=== PATIENT | female | born 1960 | race Caucasian/White ===

== ENCOUNTER 2016-05-04 16:24 | Emergency (ER) | payer OTHER ==
[~2016-05-04] VITALS: Ht 154.9 cm; Wt 83.4 kg
[~2016-05-04 16:24] MED LIST: ALBUAER2 INH; ATOR10TA88 PO; BSP/10 PO; FLUT1INH7 INH; GABA-113 PO; HYDR50CA2 PO; NALT50TA9 PO; PRAZ1CAP10 PO; QUET400T PO
[2016-05-04 16:40] VITALS: TEMP 37.1; Ht 154.9 cm; Wt 83.4 kg
[2016-05-04] MEDS ORDERED: DOXE50CA3 PO (17:02)
[2016-05-04] MEDS ORDERED: OXYCODONE HCL IR 5 MG TAB (IMMEDIATE RELEASE) PO STA (17:08)
[2016-05-04] MEDS ORDERED: VNTHFA/IN INH (17:22)
[2016-05-04] MEDS ORDERED: GLCSR10 PO (17:24)
--- NOTE | 2016-05-04 17:42 | DIAGNOSTIC IMAGING REPORT ---
RIGHT WRIST W/NAVICULAR MIN 3 VIEWS CLINICAL HISTORY: Right wrist pain. COMPARISON: None. DISCUSSION: No acute fractures or dislocations are visualized. There is a nonspecific 1 cm lytic lesion within the distal radial diaphysis. IMPRESSION: 1. No acute fractures or dislocations identified 2. Nonspecific 1 cm lytic lesion within the distal radial diaphysis. Correlation with a bone scan might be considered in follow-up to help determine whether this lesion is metabolically active Electronically signed by: Rahul Gabriel M.D. 05/04/2016 5:40 PM Dictated Date/Time: 05/04/2016 5:38 PM
--- NOTE | 2016-05-04 17:48 | EMERGENCY ROOM VISIT NOTE ---
ED Visit Note First contact with patient: 16:58 I have seen and examined this patient with Preeti Nguyen and generally agree with the treatment plan as discussed. Problem List Medical Problems: (1) Back spasm Status: Chronic (2) Depression Status: Chronic (3) Diabetes Status: Chronic (4) Heroin addiction Status: Resolved (5) Pseudogout of knee Status: Resolved Surgical Problems: (1) H/O: hysterectomy Status: Chronic (2) Previous section Status: Chronic Current/Historical Medications Scheduled Aspirin (Aspirin Chewable), 81 MG PO DAILY Atorvastatin (Lipitor), 10 MG PO DAILY Bupropion (Wellbutrin Sr), 150 MG PO BID Buspirone HCl (Buspirone HCl), 15 MG PO BID Doxepin (Sinequan), 50 MG PO DAILY Dulaglutide (Trulicity), 0.75 MG INJ WK Gabapentin (Neurontin), 300 MG PO TID Glipizide (Glipizide ER), 10 MG PO QAM Metformin Hcl (Glucophage), 1,000 MG PO BID Prazosin Hcl (Prazosin), 2 MG PO HS Quetiapine Fumarate (Seroquel), 400 MG PO HS Scheduled PRN Albuterol Hfa (Ventolin Hfa), 2 PUFFS INH QID PRN for SOB/Wheezing Allergies Coded Allergies: Canagliflozin (Verified Allergy, Severe, NAUSEA, VAGIN AL IRRITATION, SOB , 09/21/15) Levofloxacin (Verified Allergy, Intermediate, HIVES, 07/16/15) Vital Signs Date Time Temp Pulse Resp B/P Pulse Ox O2 Delivery O2 Flow Rate FiO2 05/04/16 16:40 37.1 88 18 134/73 94 Room Air Departure Information Referrals Chelsey Leavitt M.D. (MEDICAL) (PCP) Patient Instructions My [facility]
[2016-05-04] MEDS ORDERED: OXYC-57 PO (18:13)
[2016-05-04] MEDS ORDERED: PRED50TA PO (18:13)
--- NOTE | 2016-05-04 18:14 | EMERGENCY ROOM VISIT NOTE ---
ED Visit Note First contact with patient: 16:58 CHIEF COMPLAINT: Wrist injury HISTORY OF PRESENT ILLNESS: This 48-year-old female patient presents to the emergency department ambulatory complaining of pain in the right wrist. The patient reports she has had a gradual onset of pain in her right wrist and thumb beginning yesterday and worsening today. She denies any specific injury to the wrist. She is able to move it, but states there is increased pain when she is moving her thumb or index finger. She also has increased pain when trying to push herself up from a sitting position using her wrist. She recently overall discomfort a 10/10. She does have a history of gout but has never had gout in her wrist. No numbness or tingling. No previous issues with this wrist. She has not taken anything for pain at home. REVIEW OF SYSTEMS: A 6 system review of systems was performed with positives and pertinent negatives in the HPI. ALLERGIES: See EMR MEDICATIONS: See med list PMH: Gout, diabetes SOCIAL HISTORY: The patient lives locally with family. PHYSICAL EXAM: Vital Signs: Reviewed Nurse's notes, vital signs stable. GENERAL : This is a 56-year-old female, in no acute distress, but appears to be in pain , well-developed, well-nourished. NEURO: Alert and oriented to person place and time. Normal sensation to light and sharp touch. MUSCULOSKELETAL: There is no deformity of the right wrist. There is no erythema, edema or warmth. There is tenderness over the right wrist just proximal to the thumb. Range of motion is full. There is no tenderness of the hand. Label Cutter strength 5/5. Radial pulse 2+. SKIN: Normal and intact. The hand is warm and well perfused with capillary refill less than 2 seconds. RADIOGRAPHIC FINDINGS: RIGHT WRIST W/NAVICULAR MIN 3 VIEWS DISCUSSION: No acute fractures or dislocations are visualized. There is a nonspecific 1 cm lytic lesion within the distal radial diaphysis. IMPRESSION: 1. No acute fractures or dislocations identified 2. Nonspecific 1 cm lytic lesion within the distal radial diaphysis. Correlation with a bone scan might be considered in follow-up to help determine whether this lesion is metabolically active EMERGENCY DEPARTMENT COURSE: I examined the patient. An X-ray of the right wrist was reviewed by myself and radiology and showed a lytic lesion within the distal radius. This is not at the site of the patient's pain, but she was informed of this and should follow-up with orthopedics for further evaluation and testing. The patient's symptoms today are most consistent with a tendinitis. She does have a history of gout and I feel this is less likely, but there could be acalculous component to her pain as well. She was put in a thumb spica splint. The patient will be given a short course of prednisone. She does have diabetes, but is very well-controlled and checks her blood sugars closely. She was informed that this will most likely cause elevation of her blood sugar. She was given a short course of pain medication. She was instructed to follow-up with orthopedics regarding this. She will return for worsening symptoms. She verbalized understanding of my assessment and treatment plan and was discharged home in good condition. The patient was independently evaluated by Dr. Hu, ED attending physician, who agreed with my assessment and treatment plan. The patient was discharged home in good condition. DIAGNOSIS: Right wrist pain Problem List Medical Problems: (1) Back spasm Status: Chronic (2) Depression Status: Chronic (3) Diabetes Status: Chronic (4) Heroin addiction Status: Resolved (5) Pseudogout of knee Status: Resolved Surgical Problems: (1) H/O: hysterectomy Status: Chronic (2) Previous section Status: Chronic Current/Historical Medications Scheduled Aspirin (Aspirin Chewable), 81 MG PO DAILY Atorvastatin (Lipitor), 10 MG PO DAILY Bupropion (Wellbutrin Sr), 150 MG PO BID Buspirone HCl (Buspirone HCl), 15 MG PO BID Doxepin (Sinequan), 50 MG PO DAILY Dulaglutide (Trulicity), 0.75 MG INJ WK Gabapentin (Neurontin), 300 MG PO TID Glipizide (Glipizide ER), 10 MG PO QAM Metformin Hcl (Glucophage), 1,000 MG PO BID Prazosin Hcl (Prazosin), 2 MG PO HS Prednisone (Prednisone), 50 MG PO DAILY Quetiapine Fumarate (Seroquel), 400 MG PO HS Scheduled PRN Albuterol Hfa (Ventolin Hfa), 2 PUFFS INH QID PRN for SOB/Wheezing Oxycodone/Acetaminophen 5MG/325MG (Percocet 5MG/325MG), 1-2 TABS PO Q6H PRN for Pain Allergies Coded Allergies: Canagliflozin (Verified Allergy, Severe, NAUSEA, VAGIN AL IRRITATION, SOB , 09/21/15) Levofloxacin (Verified Allergy, Intermediate, HIVES, 07/16/15) Vital Signs Date Time Temp Pulse Resp B/P Pulse Ox O2 Delivery O2 Flow Rate FiO2 05/04/16 18:23 86 16 131/73 97 05/04/16 16:40 37.1 88 18 134/73 94 Room Air Medications Administered Medications (Trade) Dose Ordered Sig/Isak Route Start Time Stop Time Status Last Admin Dose Admin Oxycodone HCl (Roxicodone Immediate Rel Tab) 5 mg NOW STAT PO 05/04/16 17:08 05/04/16 17:10 DC 05/04/16 17:53 5 MG Departure Information Impression Primary Impression: Right wrist pain Dispostion Home / Self-Care Condition GOOD Prescriptions Oxycodone/Acetaminophen 5MG/325MG (PERCOCET 5MG/325MG) Tab 1-2 TABS PO Q6H Y for Pain, #15 TAB For Initial Treatment Prov: Preeti Nguyen PA-C 05/04/16 Prednisone (Prednisone) 50 Mg Tab 50 MG PO DAILY for 4 Days, #4 TAB Prov: Preeti Nguyen PA-C 05/04/16 Referrals Chelsey Leavitt M.D. (MEDICAL) (PCP) Patient Instructions My [facility] Additional Instructions You have been treated in the Emergency Department for Wrist Pain. You have received pain medicine in the emergency department which impairs your ability to operate a vehicle. It is illegal for you to drive after receiving these medicines. You have been prescribed Percocet to be used for pain control. This is a narcotic medication. You cannot drive or consume alcohol while on this medicine. This medicine should only be used for pain that cannot be controlled with [id number] pain medicines. Prednisone as prescribed. Check your blood sugars closely for the next few days , as steroids can increase your blood sugars. For pain control, you can use the following [id number] medicines (if >12 yo): - Regular strength (325mg/tab) Tylenol (acetaminophen) 2 tabs every 4-6 hours as needed. Do not exceed 12 tablets in a 24 hour period. Avoid taking more than 4 grams (4000 mg) of Tylenol per day. This includes any other sources of acetaminophen you may take on a regular basis. - Regular strength (200 mg/tab) Advil (ibuprofen) 1-2 tabs every 4-6 hours as needed. Do not exceed a dose of 3200 mg per day. If this is a recent injury (<24 hrs), ice can be applied to the area of pain for the first 3 days to help decrease pain and inflammation. Wear the brace as needed for pain. Follow-up with orthopedics within 1-2 weeks regarding your wrist pain. Return to the Emergency Department if your current symptoms worsen despite treatment course outlined above, or if you develop any of the following symptoms : Redness/swelling, intractable pain despite aforementioned treatment course or new onset of numbness or tingling of the fingers.
[2016-05-04 18:23] VITALS: BP 131/73; PULSE 86; O2SAT 97
[2016-05-04] MEDS ORDERED: ASPCH81X PO (19:40)
[2016-05-04] MEDS ORDERED: BUPR-79 PO (19:40)
[2016-09-04] MEDS ORDERED: BSP15 PO (17:02)
[2016-09-04] MEDS ORDERED: DULA1INJ INJ (17:02)
[2016-09-04] MEDS ORDERED: METF-384 PO (17:23)
[2016-09-04] MEDS ORDERED: ERGO1CAP41 PO (22:26)
[2016-09-04] MEDS ORDERED: SRQ400 PO (22:26)
== END 2016-05-04 18:24 | disposition home or self-care (01) ==
LOC: C.EDB 16:26 → C.EDD 18:24
DX: M25.531 Pain in right wrist (principal); E11.9 Type 2 diabetes mellitus without complications; F32.9 Major depressive disorder, single episode, unspecified; Z79.899 Other long term (current) drug therapy; Z79.84 Long term (current) use of oral hypoglycemic drugs; Z79.82 Long term (current) use of aspirin; Z87.39 Personal history of other diseases of the musculoskeletal system and connective tissue

== ENCOUNTER 2016-09-04 21:48 | Emergency (ER) | payer OTHER ==
[~2016-09-04] VITALS: Ht 152.4 cm; Wt 76.6 kg
[~2016-09-04 21:48] MED LIST changes: -ALBUAER2 INH; +ASPCH81X PO; +ATOR10TA82 PO; -ATOR10TA88 PO; -BSP/10 PO; +BSP15 PO; +BUPR-79 PO; +DOXE50CA3 PO; +DULA1INJ INJ; -FLUT1INH7 INH; +GLCSR10 PO; -HYDR50CA2 PO; +METF-384 PO; -NALT50TA9 PO; +OXYC-57 PO; +VNTHFA/IN INH
[2016-09-04 21:52] VITALS: BP 129/73; PULSE 109; TEMP 37; O2SAT 95; Ht 152.4 cm; Wt 76.6 kg
[2016-09-04] MEDS ORDERED: XYLOCAINE 1%/SOD BICARB 20 ML VIAL INFIL ONE (22:00)
[2016-09-04] MEDS ORDERED: ASPI81TA28 PO (22:26)
[2016-09-04] MEDS ORDERED: LPT10 PO (22:26)
[2016-09-04] MEDS ORDERED: SNQ/50 PO (22:26)
[2016-09-04] MEDS ORDERED: ERGO500011 PO (22:26)
[2016-09-04] MEDS ORDERED: GABA1CAP4 PO (22:26)
[2016-09-04] MEDS ORDERED: QUET1TAB20 PO (22:26)
[2016-09-04] MEDS ORDERED: RANI300T PO (22:26)
[2016-09-04] MEDS ORDERED: GLIM4TAB2 PO (22:26)
[2016-09-04] MEDS ORDERED: WLLSR150 PO (22:26)
[2016-09-04] MEDS ORDERED: PRZ1 PO (22:26)
--- NOTE | 2016-09-05 02:12 | EMERGENCY ROOM VISIT NOTE ---
History First contact with patient: 21:56 Chief Complaint: SKIN PROBLEM Stated Complaint: SOMETHING STUCK UNDER SKIN IN R ARM History of Present Illness The patient is a 56 year old female who presents to the Emergency Room with complaints of possible foreign body and right forearm. Patient was gardening and then bhakti noticed there is possibly something in her forearm. She does not room remember getting stuck by anything. Tetanus is current. Patient denies fever, redness, drainage. No numbness or tingling. No weakness. Review of Systems See HPI for pertinent positives & negatives. A total of 6 systems reviewed and were otherwise negative. Past Medical/Surgical History Medical Problems: (1) Back spasm (2) Depression (3) Diabetes (4) Heroin addiction (5) Pseudogout of knee Surgical Problems: (1) H/O: hysterectomy (2) Previous section Family History Diabetes mellitus Hypertension Lung disease Social History Smoking Status: Current Every Day Smoker Alcohol Use: none Drug Use: other Marital Status: in relationship Housing Status: lives with significant other Occupation Status: unemployed Current/Historical Medications Scheduled Aspirin (Aspirin Ec), 81 MG PO DAILY Atorvastatin (Atorvastatin Calcium), 10 MG PO DAILY Bupropion HCl (Bupropion HCl Sr), 150 MG PO BID Buspirone HCl (Buspirone HCl), 15 MG PO BID Doxepin Hcl (Sinequan), 50 MG PO DAILY Dulaglutide (Trulicity), 0.75 MG INJ WK Ergocalciferol (Vitamin D 91728 Unit), 50,000 INTER.UNIT PO WK Gabapentin (Gabapentin), 600 MG PO TID Glimepiride (Glimepiride), 4 MG PO QAM Metformin Hcl (Glucophage), 1,000 MG PO BID Prazosin HCl (Prazosin HCl), 2 MG PO HS Quetiapine Fumarate (Quetiapine Fumarate), 400 MG PO HS Ranitidine Hcl (Zantac), 300 MG PO QAM Allergies Coded Allergies: Canagliflozin (Verified Allergy, Severe, NAUSEA, VAGIN AL IRRITATION, SOB , 09/21/15) Levofloxacin (Verified Allergy, Intermediate, HIVES, 07/16/15) Physical Exam Vital Signs Date Time Temp Pulse Resp B/P (MAP) Pulse Ox O2 Delivery O2 Flow Rate FiO2 09/04/16 21:52 37.0 109 20 129/73 95 Room Air Pain Rating (0-10): 0 Physical Exam VITALS: Vitals are noted on the nurse's note and reviewed by myself. Vital signs stable. GENERAL: Pleasant female, in no acute distress, nondiaphoretic, well-developed well-nourished. SKIN: Capillary reflex less than 2 seconds. Right forearm with 1 mm wound was concerning for possible foreign body by palpation. No signs of cellulitis or lymphangitis. Right forearm nontender to palpation. Radial pulse +2 equal present bilaterally. MUSCULOSKELETAL: No gross musculoskeletal defects. NEURO: Patient was alert and oriented to person place and time. Normal sensation to light and sharp touch. No focal neurological deficits. Medical Decision & Procedures Procedure Foreign body removal Indication: Foreign body. Location: Right forearm Verbal consent was obtained after the risks and benefits were explained, including but not limited to bleeding, scarring, infection, pain, and bone/joint /nerve damage. At this time, the risks of the procedure are less than the risks of NOT performing the procedure. A time out was taken and the correct patient and site identified. The skin was prepped with betadine and a sterile field set. The wound was anesthetized with 2 ml of 1% lidocaine without epinephrine. The area was entered with a number 11 blade and a 1 cm piece of wood was removed and patient requested to have this to take, and show her . Copious irrigation was performed using NSS. The wound was explored for any other foreign bodies and none found. Debridement was not performed. a sterile dressing applied. Detailed wound care instructions and signs and symptoms of worsening infection reviewed with the patient. No complications and the patient tolerated the procedure well. ED Course Prior records reviewed and summarized as above. Triage Nursing notes reviewed. The patient's history was concerning for possible foreign body. Differential diagnosis: Etiologies such as foreign body, cellulitis, abscess, MRSA infection, dermatitis, drug eruption, as well as others were entertained.. Physical examination: The physical examination was consistent with foreign body with removal ER treatment provided: Foreign body removal as above On reassessment the patient felt better. Diagnostics interpreted by me: Deferred This appears to be isolated Foreign body with removal. Patient tolerated procedure well. She is counseled on wound care. She is advised to return to the ER immediately for redness, drainage, fevers, worsening signs or symptoms or as needed. Patient stated her tetanus is current. By the evaluation outlined above emergent etiologies such as abscess, as well as others were deemed relatively unlikely. The pt informed about the findings as listed above. All questions were answered and pleased with the treatment. Return instructions were outlined and the patient was discharged in stable condition. Referral: The patient was referred back to primary care physician for follow-up in 2 to 3 days for a recheck of the current condition. Medical Decision As above Impression Primary Impression: Foreign body of upper arm, right, superficial Departure Information Dispostion Home / Self-Care Condition GOOD Forms WORK / SCHOOL INSTRUCTIONS, HOME CARE DOCUMENTATION FORM, IMPORTANT VISIT INFORMATION Patient Instructions [facility], ED Abrasion Additional Instructions Antibiotic ointment and bandage to the areas until healed. Follow up with family doctor or return for any signs of infection (increasing redness, swelling , drainage, or fever). Keep covered when in sun until fully healed then SPF 50 or higher until scar healed. Problem Qualifiers Primary Impression: Foreign body of upper arm, right, superficial Encounter type: initial encounter Qualified Codes: S40.851A - Superficial foreign body of right upper arm, initial encounter
== END 2016-09-04 22:14 | disposition home or self-care (01) ==
LOC: C.EDB 21:49 → C.EDD 22:14
DX: S40.851A Superficial foreign body of right upper arm, initial encounter (principal); W45.8XXA Other foreign body or object entering through skin, initial encounter; Y93.H2 Activity, gardening and landscaping; Y99.8 Other external cause status; E11.9 Type 2 diabetes mellitus without complications; F32.9 Major depressive disorder, single episode, unspecified; F11.21 Opioid dependence, in remission; F17.200 Nicotine dependence, unspecified, uncomplicated; Z90.710 Acquired absence of both cervix and uterus; Z98.891 History of uterine scar from previous surgery; Z83.3 Family history of diabetes mellitus; Z82.49 Family history of ischemic heart disease and other diseases of the circulatory system; Z79.82 Long term (current) use of aspirin; Z79.84 Long term (current) use of oral hypoglycemic drugs; Z79.899 Other long term (current) drug therapy

== ENCOUNTER 2016-10-07 23:13 | Observation (INO) | payer OTHER ==
[~2016-10-07] VITALS: Ht 152.4 cm; Wt 78.8 kg
[~2016-10-07 23:13] MED LIST changes: -ASPCH81X PO; +ASPI81TA28 PO; -ATOR10TA82 PO; -BUPR-79 PO; -DOXE50CA3 PO; +ERGO1CAP41 PO; -GABA-113 PO; +GABA1CAP4 PO; -GLCSR10 PO; +GLIM4TAB2 PO; +LPT10 PO; -OXYC-57 PO; -PRAZ1CAP10 PO; +PRZ1 PO; -QUET400T PO; +RANI300T PO; +SNQ/50 PO; +SRQ400 PO; -VNTHFA/IN INH; +WLLSR150 PO
[2016-10-07] MEDS ORDERED: SODIUM CHLORIDE 0.9% 1000ML 1,000 ML IV STA (23:31)
[2016-10-07] MEDS ORDERED: ONDANSETRON INJ 2 MG/ML 2 ML VIAL IV STA (23:31)
[2016-10-07] MEDS ORDERED: MoRPHine SULFATE 4 MG/ML 1 ML CARP\\VIAL IV STA (23:31)
--- NOTE | 2016-10-07 23:44 | EMERGENCY ROOM VISIT NOTE ---
History Report prepared by Alejandro: Lonny Alva Under the Supervision of: Dr. Penny Houser, D.O. First contact with patient: 23:22 Chief Complaint: CARDIAC ASSESSMENT Stated Complaint: PAIN IN CHEST LEADING UP UNDER LT ARM History of Present Illness The patient is a 56 year old female who presents to the Emergency Room with complaints of constant left-sided chest pain beginning prior to arrival. The patient states that her pain started in her left breast, and then it radiated through her left side of the chest and into her left arm pit. She notes that it did not radiate to her back or arm. She reports that she thought it was indigestion, so she took TUMs, but it did not help. The patient states that she is nauseous and has diarrhea. She denies vomiting, diaphoresis, dizziness, lightheadedness, right-sided chest pain, melena, fever, chills, cough, and edema to the legs. The patient notes that she has had previous symptoms before and was diagnosed with pancreatitis. She denies a history of GERD or stomach ulcers. The patient reports that she just started Vitamin D and Trulicity. She notes that she drinks one cup of coffee in the morning, and denies alcohol and soda consumption. The patient states that she has not started eating new foods and does not eat an acidic diet. She states that she is a diabetic, and her sugars have been normal because her new specialist told her she needed to lose weight. The patient notes that she has a history of COPD and takes medication daily. She reports that she still smokes and has an inhaler to use when needed. Source of History: patient Onset: prior to arrival Position: chest (left) Timing: constant Associated Symptoms: + nausea, + diarrhea, No fevers, No chills, No diaphoresis, No cough, No chest pain (right-sided), No vomiting, No back pain, No melena Note: Associated symptoms: left arm pit pain Denies: arm pain, dizziness, lightheadedness, and edema to the legs. Review of Systems See HPI for pertinent positives & negatives. A total of 10 systems reviewed and were otherwise negative. Past Medical & Surgical Medical Problems: (1) Back spasm (2) Depression (3) Diabetes (4) Heroin addiction (5) Precordial chest pain (6) Pseudogout of knee Surgical Problems: (1) H/O: hysterectomy (2) Previous section Family History Diabetes mellitus Hypertension Lung disease Social History Smoking Status: Current Every Day Smoker Alcohol Use: none Drug Use: other Marital Status: in relationship Housing Status: lives with significant other Occupation Status: unemployed Current/Historical Medications Scheduled Aspirin (Aspirin Ec), 81 MG PO DAILY Atorvastatin (Atorvastatin Calcium), 10 MG PO DAILY Bupropion HCl (Bupropion HCl Sr), 150 MG PO BID Buspirone HCl (Buspirone HCl), 15 MG PO BID Doxepin Hcl (Sinequan), 50 MG PO DAILY Dulaglutide (Trulicity), 0.75 MG INJ WK Ergocalciferol (Vitamin D 49638 Unit), 50,000 INTER.UNIT PO WK Gabapentin (Gabapentin), 600 MG PO TID Glimepiride (Glimepiride), 4 MG PO QAM Metformin Hcl (Glucophage), 1,000 MG PO BID Prazosin HCl (Prazosin HCl), 2 MG PO HS Quetiapine Fumarate (Quetiapine Fumarate), 400 MG PO HS Ranitidine Hcl (Zantac), 300 MG PO QAM Allergies Coded Allergies: Canagliflozin (Verified Allergy, Severe, NAUSEA, VAGIN AL IRRITATION, SOB , 09/21/15) Levofloxacin (Verified Allergy, Intermediate, HIVES, 07/16/15) Physical Exam Vital Signs Date Time Temp Pulse Resp B/P (MAP) Pulse Ox O2 Delivery O2 Flow Rate FiO2 10/08/16 02:35 84 22 124/81 96 Room Air 10/08/16 01:49 99 78 Room Air 10/08/16 01:10 72 20 131/79 100 Room Air 10/08/16 00:20 82 20 143/90 96 Room Air 10/07/16 23:49 99 Room Air 10/07/16 23:38 78 10/07/16 23:17 36.6 85 19 150/75 99 Room Air Physical Exam GENERAL: alert, well appearing, well nourished, mild distress, non-toxic EYE EXAM: normal conjunctiva, PERRL and EOM's grossly intact OROPHARYNX: no exudate, no erythema, lips, buccal mucosa, and tongue normal and mucous membranes are dry. Edentulous NECK: supple, no nuchal rigidity, no adenopathy, non-tender LUNGS: Clear to auscultation. Normal chest wall mechanics. No reproducible chest tenderness. HEART: no murmurs, S1 normal and S2 normal ABDOMEN: abdomen soft, epigastric tenderness, normo-active bowel sounds, no masses, no rebound or guarding. BACK: Back is symmetrical on inspection and there is no deformity, no midline tenderness, no CVA tenderness. SKIN: no rashes and no bruising UPPER EXTREMITIES: upper extremities are grossly normal. LOWER EXTREMITIES: No pitting edema. NEURO EXAM: Normal sensorium, cranial nerves II-XII grossly intact, normal speech, no gross weakness of arms, no gross weakness of legs. Medical Decision & Procedures ER Provider Diagnostic Interpretation: XRAY: A chest view study was reviewed, no cardiomegaly, no effusion, no wide mediastinum, mildly increased interstitial markings bilaterally was seen. Laboratory Results Test 10/07/16 23:40 Immature Granulocyte % (Auto) 0.3 % White Blood Count 14.80 K/uL (4.8-10.8) Red Blood Count 4.63 M/uL (4.2-5.4) Hemoglobin 14.1 g/dL (12.0-16.0) Hematocrit 41.6 % (37-47) Mean Corpuscular Volume 89.8 fL (80-100) Mean Corpuscular Hemoglobin 30.5 pg (25-34) Mean Corpuscular Hemoglobin Concent 33.9 g/dl (32-36) Platelet Count 286 K/uL (130-400) Mean Platelet Volume 10.7 fL (7.4-10.4) Neutrophils (%) (Auto) 56.5 % Lymphocytes (%) (Auto) 33.2 % Monocytes (%) (Auto) 7.4 % Eosinophils (%) (Auto) 2.2 % Basophils (%) (Auto) 0.4 % Neutrophils # (Auto) 8.38 K/uL (1.4-6.5) Lymphocytes # (Auto) 4.91 K/uL (1.2-3.4) Monocytes # (Auto) 1.09 K/uL (0.11-0.59) Eosinophils # (Auto) 0.32 K/uL (0-0.5) Basophils # (Auto) 0.06 K/uL (0-0.2) Immature Granulocyte # (Auto) 0.04 K/uL (0.00-0.02) D-Dimer 200 ug/L FEU (0-500) Magnesium Level 1.8 mg/dl (1.8-2.4) Total Bilirubin 0.1 mg/dl (0.2-1) Aspartate Amino Transf (AST/SGOT) 10 U/L (15-37) Alanine Aminotransferase (ALT/SGPT) 26 U/L (12-78) Alkaline Phosphatase 87 U/L (45-117) Total Protein 7.0 gm/dl (6.4-8.2) Albumin 3.7 gm/dl (3.4-5.0) Globulin 3.3 gm/dl (2.5-4.0) Albumin/Globulin Ratio 1.1 (0.9-2) Lipase 257 U/L (73-393) Laboratory results per my review. Medications Administered Medications (Trade) Dose Ordered Sig/Isak Route Start Time Stop Time Status Last Admin Dose Admin Ondansetron HCl (Zofran Inj) 4 mg NOW STAT IV 10/07/16 23:31 10/07/16 23:34 DC 10/07/16 23:47 4 MG Morphine Sulfate (MoRPHine SULFATE INJ) 4 mg NOW STAT IV 10/07/16 23:31 10/07/16 23:34 DC 10/07/16 23:48 4 MG Sodium Chloride 1,000 ml @ 999 mls/hr Q1H1M STAT IV 10/07/16 23:31 10/08/16 00:31 DC 10/07/16 23:47 999 MLS/HR Al Hydroxide/Mg Hydroxide (Maalox Susp) 30 ml NOW STAT PO 10/08/16 00:25 10/08/16 00:26 DC 10/08/16 00:39 30 ML Ceftriaxone Sodium (Rocephin Inj) 1 gm NOW STAT IV 10/08/16 00:25 10/08/16 00:26 DC 10/08/16 00:39 1 GM Azithromycin (Zithromax Tab) 500 mg NOW ONCE PO 10/08/16 00:30 10/08/16 00:31 DC 10/08/16 00:39 500 MG Albuterol/ Ipratropium (Duoneb) 3 ml NOW STAT INH 10/08/16 00:57 10/08/16 00:58 DC 10/08/16 01:04 3 ML Ketorolac Tromethamine (Toradol Inj) 30 mg NOW STAT IV 10/08/16 00:57 10/08/16 00:58 DC 10/08/16 01:04 30 MG Sodium Chloride 1,000 ml @ 999 mls/hr Q1H1M STAT IV 10/08/16 00:58 10/08/16 01:58 DC 10/08/16 01:06 999 MLS/HR Dicyclomine HCl (Bentyl Tab) 20 mg NOW STAT PO 10/08/16 01:28 10/08/16 01:29 DC 10/08/16 01:39 20 MG Tramadol HCl (Ultram Tab) 50 mg NOW STAT PO 10/08/16 01:28 10/08/16 01:29 DC 10/08/16 01:39 50 MG ECG Indication: chest pain Rate (beats per minute): 78 Rhythm: sinus rhythm Findings: no acute ischemic change, other (Normal axis and interval, low voltage throughout) ED Course 2331: Ordered Sodium Chloride 1000 ml @ 999 mls/hr IV, Morphine Sulfate 4 mg IV , Zofran Inj 4 mg IV 2325: The patient was evaluated in room B02. A complete history and physical exam was performed. 0025: Ordered Rocephin Inj 1 gm IV, Maalox Susp 30 ml PO 0030: Ordered Zithromax Tab 500 mg PO 0056: I reevaluated the patient and updated her of her current exam findings. She states that she is still having pain, but it has improved. 0057: Ordered Toradol Inj 30 mg IV, Duoneb 3 ml INH 0128: Ordered Ultram Tab 50 mg PO, Bentyl Tab 20 mg PO 0146: Ambulatory Pulsox showed the patient's O2 Sat drop from 97% to 78% and increased worker breathing. 0147: Paged Dr. Price, [facility] Hospitalist. I never talked to him, but he is aware of the patient. He will evaluate her for further treatment. Medical Decision Differential diagnoses includes but is not limited to acute coronary syndrome, myocardial infarction, pericarditis, pulmonary embolus, aortic dissection, pneumonia, pneumothorax, musculoskeletal, shingles, esophageal. Medication Reconciliation: I attest that I have personally reviewed the patient' s current medication list. Blood pressure screening: Patient was found to have a slightly elevated blood pressure due to circumstances. I do not believe that the patient requires hypertension monitoring. Patient with persistent episodes of left-sided chest pain despite treatment. However felt initially may be amenable for outpatient treatment of COPD exacerbation/pneumonia. However upon ambulatory trial patient dropped her oxygen level. This prompted the decision to admit the patient. Doubt bacteremia/sepsis, doubt PE, doubt additional vascular etiology or cardiac etiology for patient's symptoms. Patient with continued tobacco abuse which likely predisposed her to a respiratory infection. Patient was made aware of all results was agreeable with plan. Consults Time Called: 0147 Consulting Physician: Dr. Price, [facility] Hospitalist Paged Dr. Price, [facility] Hospitalist. I never talked to him, but he is aware of the patient. He will evaluate her for further treatment. Impression Primary Impression: Pneumonia Additional Impressions: Left sided chest pain Tobacco abuse Hypoxia Scribe Attestation The scribe's documentation has been prepared under my direction and personally reviewed by me in its entirety. I confirm that the note above accurately reflects all work, treatment, procedures, and medical decision making performed by me. Departure Information Dispostion Being Evaluated By Hospitalist Referrals Geneva Loving M.D. (PCP) Patient Instructions My [facility] Problem Qualifiers Primary Impression: Pneumonia Pneumonia type: due to unspecified organism Laterality: left Lung location : lower lobe of lung Qualified Codes: J18.1 - Lobar pneumonia, unspecified organism
[2016-10-08 00:01] LABS: BASO % 0.4 %; BASO ABS # 0.06 K/uL (0-0.2); COMPLETE YES; EOS % 2.2 %; HEMATOCRIT 41.6 % (37-47); IG% 0.3 %; LYMPH % 33.2 %; LYMPH ABS # 4.91 K/uL (1.2-3.4); MEAN CELL VOLUME 89.8 fL (80-100); MEAN CORPUSCULAR HEMOGLOBIN 30.5 pg (25-34); MEAN CORPUSCULAR HGB CONC 33.9 g/dl (32-36); MEAN PLATELET VOLUME 10.7 fL (7.4-10.4); MONO % 7.4 %; NEUT % 56.5 %; PLATELET COUNT 286 K/uL (130-400); RED BLOOD COUNT 4.63 M/uL (4.2-5.4)
[2016-10-08] MEDS ORDERED: GLIM4TAB2 PO (00:14)
[2016-10-08 00:19] LABS: ALT/SGPT 26 U/L (12-78); BLOOD UREA NITROGEN 12 mg/dl (7-18); CALCIUM 9.6 mg/dl (8.5-10.1); CARBON DIOXIDE 23 mmol/L (21-32); CHLORIDE 111 mmol/L (98-107); CREATININE 0.85 mg/dl (0.60-1.20); GLUCOSE 92 mg/dl (70-99); MAGNESIUM 1.8 mg/dl (1.8-2.4); POTASSIUM 3.9 mmol/L (3.5-5.1); SODIUM 143 mmol/L (136-145)
[2016-10-08 00:24] LABS: ALB/GLOB RATIO 1.1 (0.9-2); ALKALINE PHOSPHATASE 87 U/L (45-117); AST/SGOT 10 U/L (15-37)
[2016-10-08] MEDS ORDERED: CEFTRIAXONE SOD INJ 1 GM ADDVIAL IV STA (00:25)
[2016-10-08] MEDS ORDERED: ALUMINUM/MAGNESIUM SUSP 30 ML UDC PO STA (00:25)
[2016-10-08] MEDS ORDERED: AZITHROMYCIN 250 MG TAB PO ONE (00:30)
[2016-10-08] MEDS ORDERED: ALBUT/IPRATROP 3MG/0.5MG NEB 3 ML VIAL INH STA (00:57)
[2016-10-08] MEDS ORDERED: KETOROLAC TROMETHAMINE 30 MG/ML VIAL IV STA (00:57)
[2016-10-08] MEDS ORDERED: SODIUM CHLORIDE 0.9% 1000ML 1,000 ML IV STA (00:58)
[2016-10-08] MEDS ORDERED: TRAMADOL HCL 50 MG TAB PO STA (01:28)
[2016-10-08] MEDS ORDERED: DICYCLOMINE HCL 20 MG TAB PO STA (01:28)
[2016-10-08] MEDS ORDERED: DICYCLOMINE HCL 10 MG CAP ONE (01:34)
[2016-10-08] MEDS ORDERED: POLYETHYLENE (MIRALAX) 17 GM PACK PO PRN (03:45)
[2016-10-08] MEDS ORDERED: NITROGLYCERIN 0.4 MG SL PER TAB CHARGE SL PRN (03:45)
[2016-10-08] MEDS ORDERED: ACETAMINOPHEN 325 MG TAB PO PRN (03:45)
[2016-10-08] MEDS ORDERED: ALUMINUM/MAGNESIUM/SIMETH (MAALOX MAX) 30 ML UDC PO PRN (03:45)
[2016-10-08] MEDS ORDERED: ONDANSETRON INJ 2 MG/ML 2 ML VIAL IV PRN (03:45)
[2016-10-08] MEDS ORDERED: DEXTROSE 50% 50 ML SYR IV PRN (04:15)
[2016-10-08] MEDS ORDERED: GLUCOSE 40% GEL 15 GM TUBE PO PRN (04:15)
[2016-10-08] MEDS ORDERED: GLUCAGON FOR INJ 1 MG VIAL SQ PRN (04:15)
[2016-10-08] MEDS ORDERED: GLUCOSE 10 TABS/TUBE PO PRN (04:15)
--- NOTE | 2016-10-08 04:19 | History and Physical ---
History & Physical Date & Time of Service: Oct 08, 2016 at 04:19 Chief Complaint: Pain In Chest Leading Up Under Lt Arm Primary Care Physician: Geneva Loving M.D. History of Present Illness Source: patient 56-year-old female with past medical history of depression, diabetes, pseudogout , heroin addiction presented to the ER with complaints of left-sided chest pain that started at around 2 PM. She stated that the pain radiated towards her left arm and later settled in her epigastric area. She tried using Tums which did not seem to help her pain. Complaints of nausea, chills and sweats but denies any coughing, vomiting, abdominal pain. She stated that she has a history of pancreatitis and was wondering if her epigastric pain was secondary to pancreatitis. She denied any history of alcohol consumption She is a current smoker and smokes about half pack a day Past Medical/Surgical History Medical Problems: (1) Back spasm Status: Chronic (2) Depression Status: Chronic (3) Diabetes Status: Chronic (4) Heroin addiction Status: Resolved (5) Pseudogout of knee Status: Resolved Surgical Problems: (1) H/O: hysterectomy Status: Chronic (2) Previous section Status: Chronic Family History Diabetes mellitus Hypertension Lung disease Social History Smoking Status: Current Every Day Smoker Drug Use: other Marital Status: in relationship Housing status: lives with significant other Occupational Status: unemployed Allergies Coded Allergies: Canagliflozin (Verified Allergy, Severe, NAUSEA, VAGIN AL IRRITATION, SOB , 09/21/15) Levofloxacin (Verified Allergy, Intermediate, HIVES, 07/16/15) Home Medications Scheduled Aspirin (Aspirin Ec), 81 MG PO DAILY Atorvastatin (Atorvastatin Calcium), 10 MG PO DAILY Bupropion HCl (Bupropion HCl Sr), 150 MG PO BID Buspirone HCl (Buspirone HCl), 15 MG PO BID Doxepin Hcl (Sinequan), 50 MG PO DAILY Dulaglutide (Trulicity), 0.75 MG INJ WK Ergocalciferol (Vitamin D 50095 Unit), 50,000 INTER.UNIT PO WK Gabapentin (Gabapentin), 600 MG PO TID Glimepiride (Glimepiride), 4 MG PO QAM Metformin Hcl (Glucophage), 1,000 MG PO BID Prazosin HCl (Prazosin HCl), 2 MG PO HS Quetiapine Fumarate (Quetiapine Fumarate), 400 MG PO HS Ranitidine Hcl (Zantac), 300 MG PO QAM Review of Systems Constitutional: + chills, + sweats, No fever Eyes: No worsening of vision Respiratory: No cough, No shortness of breath Cardiovascular: + chest pain Abdomen: + pain (epigastric), + nausea, No vomiting, No diarrhea Musculoskeletal: No joint pain Genitourinary - Female: No dysuria, No urinary frequency, No urinary urgency Neurologic: No memory loss Psychiatric: No depression symptoms Endocrine: No fatigue Physical Exam Vital Signs Date Time Temp Pulse Resp B/P (MAP) Pulse Ox O2 Delivery O2 Flow Rate FiO2 10/08/16 04:12 77 20 139/84 94 10/08/16 02:35 84 22 124/81 96 Room Air 10/08/16 01:49 99 78 Room Air 10/08/16 01:10 72 20 131/79 100 Room Air 10/08/16 00:20 82 20 143/90 96 Room Air 10/07/16 23:49 99 Room Air 10/07/16 23:38 78 10/07/16 23:17 36.6 85 19 150/75 99 Room Air General Appearance: WD/WN, no apparent distress Eyes: normal inspection ENT: normal ENT inspection, hearing grossly normal Neck: supple Respiratory/Chest: chest non-tender, lungs clear, normal breath sounds, no respiratory distress, no accessory muscle use Cardiovascular: regular rate, rhythm Abdomen/GI: normal bowel sounds, non tender, soft Back: normal inspection Extremities/Musculoskelatal: normal inspection, no calf tenderness Neurologic/Psych: alert, normal mood/affect, oriented x 3 Diagnostics Laboratory Results Results Past 24 Hours Test 10/07/16 23:40 Range/Units White Blood Count 14.80 4.8-10.8 K/uL Red Blood Count 4.63 4.2-5.4 M/uL Hemoglobin 14.1 12.0-16.0 g/dL Hematocrit 41.6 37-47 % Mean Corpuscular Volume 89.8 80-100 fL Mean Corpuscular Hemoglobin 30.5 25-34 pg Mean Corpuscular Hemoglobin Concent 33.9 32-36 g/dl Platelet Count 286 130-400 K/uL Mean Platelet Volume 10.7 7.4-10.4 fL Neutrophils (%) (Auto) 56.5 % Lymphocytes (%) (Auto) 33.2 % Monocytes (%) (Auto) 7.4 % Eosinophils (%) (Auto) 2.2 % Basophils (%) (Auto) 0.4 % Neutrophils # (Auto) 8.38 1.4-6.5 K/uL Lymphocytes # (Auto) 4.91 1.2-3.4 K/uL Monocytes # (Auto) 1.09 0.11-0.59 K/uL Eosinophils # (Auto) 0.32 0-0.5 K/uL Basophils # (Auto) 0.06 0-0.2 K/uL RDW Standard Deviation 43.1 36.4-46.3 fL RDW Coefficient of Variation 13.1 11.5-14.5 % Immature Granulocyte % (Auto) 0.3 % Immature Granulocyte # (Auto) 0.04 0.00-0.02 K/uL D-Dimer 200 0-500 ug/L FEU Sodium Level 143 136-145 mmol/L Potassium Level 3.9 3.5-5.1 mmol/L Chloride Level 111 98-107 mmol/L Carbon Dioxide Level 23 21-32 mmol/L Anion Gap 9.0 3-11 mmol/L Blood Urea Nitrogen 12 7-18 mg/dl Creatinine 0.85 0.60-1.20 mg/dl Est Creatinine Clear Calc Drug Dose 66.9 ml/min Estimated GFR () 87.5 Estimated GFR (Non- 75.5 BUN/Creatinine Ratio 14.0 10-20 Random Glucose 92 70-99 mg/dl Calcium Level 9.6 8.5-10.1 mg/dl Magnesium Level 1.8 1.8-2.4 mg/dl Total Bilirubin 0.1 0.2-1 mg/dl Aspartate Amino Transf (AST/SGOT) 10 15-37 U/L Alanine Aminotransferase (ALT/SGPT) 26 12-78 U/L Alkaline Phosphatase 87 45-117 U/L Troponin I < 0.015 0-0.045 ng/ml Total Protein 7.0 6.4-8.2 gm/dl Albumin 3.7 3.4-5.0 gm/dl Globulin 3.3 2.5-4.0 gm/dl Albumin/Globulin Ratio 1.1 0.9-2 Lipase 257 73-393 U/L Diagnostic Radiology CHEST ONE VIEW PORTABLE CLINICAL HISTORY: chest pain dyspnea COMPARISON STUDY: 09/22/2015 FINDINGS: Mild chronic interstitial change throughout both hemithoraces. No evidence for superimposed infiltrate. Diaphragms smooth. IMPRESSION: Chronic interstitial change. No acute process. Electronically signed by: Jerson Seaman M.D. 10/08/2016 6:45 AM Dictated Date/Time: 10/08/2016 6:44 AM Impression Assessment and Plan 56-year-old female with past medical history of depression, diabetes, pseudogout , heroin addiction presented to the ER with complaints of left-sided chest pain that started at around 2 PM. She stated that the pain radiated towards her left arm and later settled in her epigastric area Precordial chest pain: - Initial troponin negative - CXR: IMPRESSION: Chronic interstitial change. No acute process. - Trend troponins every 8 hours - Echo ordered - Continue statin and aspirin COPD: - Continue nebs as needed History of smoking: - NicoDerm patch - Smoking cessation counseling Diabetes - Insulin sliding scale Depression/anxiety: -Continue Seroquel, Wellbutrin, BuSpar Dispo: admitted to tele Attending Addendum: I physically seen and examined this patient, have supervised the medical residents activities, and agree with the H&P as noted above with the following exceptions: NONE The patient is awake, well-developed and adequately nourished, alert and oriented 3, normocephalic and atraumatic, lying in bed and in no acute distress. HEENT--PERRL, EOMI, mucous membranes and oropharynx dry. Neck--supple, no JVD or bruits, thyroid normal, trachea midline, no adenopathy. Heart--normal S1 and S2, no extra beats, no murmurs, rubs or gallops. Lungs--clear bilaterally with good air movement, no respiratory distress, no accessory muscle use. Abdomen--normal bowel sounds and soft, nontender and nondistended, no hernias or masses, no organomegaly. Extremities--no cyanosis, clubbing or edema. There are good distal pulses b/l. Dermatologic--normal skin turgor, normal color, warm and dry, no abnormal lymph nodes, no rash. Neurologic--cranial nerves II through XII grossly intact, motor and sensory examination normal. Rheumatologic--normal range of motion, nontender, muscles and joints. Psychiatric--normal affect. Assessment and Plan: 1. Left sided chest pain with radiation to left arm--the patient will be admitted to the telemetry unit for serial cardiac enzymes, cardiac rhythm monitoring and a 2-D echocardiogram with Dopplers. Continue aspirin 81 mg by mouth every morning and statin. Duonebs every 4 hours while awake and every 2 hours when necessary. Continue usual dosing of Seroquel, Wellbutrin and BuSpar. Level of Care Med/Surg Resuscitation Status FULL RESUSCITATION VTE Prophylaxis VTE Risk Assessment Done? Y/N: Yes Risk Level: Moderate Given or contraindicated: SCD's Resident Tracking Resident Involvement: Resident Care Provided Care Provided: Adult Hospital Medicine
[2016-10-08] MEDS ORDERED: IV FLUIDS COMPLETED PRN (05:00)
[2016-10-08 05:12] VITALS: BP 135/90; PULSE 75; TEMP 36.6; O2SAT 95; Ht 152.4 cm; Wt 78.8 kg
[2016-10-08] MEDS: SODIUM CHLORIDE 0.9% 1000ML 1,000 ML IV SCH ×2 (05:43→14:32)
[2016-10-08 05:54] LABS: HEMATOCRIT 39.3 % (37-47); MEAN CELL VOLUME 89.1 fL (80-100); MEAN CORPUSCULAR HEMOGLOBIN 29.5 pg (25-34); MEAN CORPUSCULAR HGB CONC 33.1 g/dl (32-36); MEAN PLATELET VOLUME 10.3 fL (7.4-10.4); PLATELET COUNT 236 K/uL (130-400); RED BLOOD COUNT 4.41 M/uL (4.2-5.4); WHITE BLOOD COUNT 12.82 K/uL (4.8-10.8)
[2016-10-08 06:28] LABS: CALCIUM 8.5 mg/dl (8.5-10.1); CREATININE 0.78 mg/dl (0.60-1.20); POTASSIUM 3.8 mmol/L (3.5-5.1)
--- NOTE | 2016-10-08 06:46 | DIAGNOSTIC IMAGING REPORT ---
CHEST ONE VIEW PORTABLE CLINICAL HISTORY: chest pain dyspnea COMPARISON STUDY: 09/22/2015 FINDINGS: Mild chronic interstitial change throughout both hemithoraces. No evidence for superimposed infiltrate. Diaphragms smooth. IMPRESSION: Chronic interstitial change. No acute process. Electronically signed by: Jerson Seaman M.D. 10/08/2016 6:45 AM Dictated Date/Time: 10/08/2016 6:44 AM
[2016-10-08 08:06] VITALS: BP 109/68; PULSE 81; TEMP 36.8; O2SAT 98
[2016-10-08] MEDS: INSULIN ASPART 100 UNITS/ML 3 ML PEN SC SCH ×2 (08:06→12:31)
[2016-10-08] MEDS: GABAPENTIN 600 MG TAB PO SCH ×2 (08:09→14:32)
[2016-10-08] MEDS ORDERED: ALBUT/IPRATROP 3MG/0.5MG NEB 3 ML VIAL INH PRN (08:15)
[2016-10-08] MEDS ORDERED: NURSING VERBAL MED ORDER ONE (08:15)
[2016-10-08] MEDS ORDERED: DOXEPIN HCL 50 MG CAP PO SCH ×2 (09:00→21:00)
[2016-10-08] MEDS ORDERED: ATORVASTATIN 10 MG TAB PO SCH (09:00)
[2016-10-08] MEDS ORDERED: ASPIRIN 81 MG ECTAB PO SCH (09:00)
[2016-10-08] MEDS ORDERED: RANITIDINE HCL 150 MG TAB PO SCH (09:00)
[2016-10-08] MEDS ORDERED: BuPROPion SR 150 MG TABCR PO SCH (09:00)
[2016-10-08] MEDS ORDERED: BusPIRone 15 MG TAB PO SCH (09:00)
[2016-10-08] MEDS ORDERED: NICOTINE 14 MG/24 HR TDSY TD SCH (09:00)
[2016-10-08 11:21] VITALS: BP 135/70; PULSE 75; TEMP 36.7; O2SAT 95
--- NOTE | 2016-10-08 14:51 | Discharge Instructions ---
Discharge Instructions Date of Service Oct 08, 2016. Admission Reason for Admission: Precordial Chest Pain Discharge Discharge Diagnosis / Problem: non cardiac chest pain Discharge Goals Goal(s): Diagnostic testing, Therapeutic intervention Activity Recommendations Activity Limitations: resume your previous activity . Instructions / Follow-Up Instructions / Follow-Up Please stop smoking Current Hospital Diet Patient's current hospital diet: Diabetes Type 2 Diet Discharge Diet Recommended Diet: Regular Diet Procedures Procedures Performed: cardiac stress test negative for ischemia Pending Studies Studies pending at discharge: no Laboratory Results Hemoglobin A1c Test 07/30/16 10:33 Range/Units Estimated Average Glucose 214 mg/dl Hemoglobin A1c 9.1 H 4.5-5.6 % Lipid Panel Test 07/30/16 10:33 Range/Units Triglycerides Level 181 H 0-150 mg/dl Cholesterol Level 143 0-200 mg/dl HDL Cholesterol 41 mg/dl Cholesterol/HDL Ratio 3.5 LDL Cholesterol, Calculated 66 mg/dl Medical Emergencies . Who to Call and When: Medical Emergencies: If at any time you feel your situation is an emergency, please call 911 immediately. . Non-Emergent Contact Non-Emergency issues call your: Primary Care Provider Call Non-Emergent contact if: temperature is above 101, your pain is unusual for you . . "Provider Documentation" section prepared by Madi Rios. . VTE Core Measure Inpt VTE Proph given/why not?: SCD's
[2016-10-08 15:02] VITALS: BP 135/70; PULSE 75; TEMP 36.7; O2SAT 95
--- NOTE | 2016-10-08 15:29 | DOBUTAMINE ECHO ---
*NOTICE TO RECEIVING LIBERTARIAN AGENCY This information is strictly Confidential and protected under [place] law. [place] law prohibits you from making any further disclosure of this information unless further disclosure is expressly permitted by the written consent of the person to whom it pertains or is authorized by law. A general authorization for the release of medical or other information is not sufficient for this purpose. Hospital accepts no responsibility if the information is made available to any other person, INCLUDING THE PATIENT. Interpretation Summary * Name: VENKATESH DELCID Study Date: 10/08/2016 01:27 PM BP: 138/77 mmHg * Patient Location: [facility]\S\N282\S\1 HR: 62 * : 1960 (M/d/yyyy) Gender: Female Height: 60 in * Age: 56 yrs Ethnicity: [place] Weight: 173 lb * Ordering Physician: Madi Rios * Referring Physician: Self, Referred * Performed By: Bettina Gallardo RCS * * Reason For Study: PRECORDIAL CHEST PAIN * BSA: 1.8 m2 * -- Conclusions -- * 1. Negative exercise stress echo for ischemia at 95% MPHR. * 2. Negative exercise ECG for ischemia. * 3. Normal functional capacity. Exercised 6:19, achieving 7.4 METS. No exercise induced chest pain. Low risk Ovalle treadmill score. * 4. Normal resting LV size and function. LVEF 55-60%. No regional wall motion abnormalities. Normal RV size and function. No significant valvular pathology. * 5. Compared with prior study on 08/07/2015: Exercise capacity has increased. Procedure Details * ECHOEX, CPT #69298 * ECHO COLOR FLOW, CPT #[id number] * ECHO DOPPLER, CPT #91322 Left Ventricular Findings with Stress * This was essentially a normal study. Left Ventricle * The left ventricle is grossly normal size. * There is borderline concentric left ventricular hypertrophy. * Ejection Fraction = 55-60%. * No regional wall motion abnormalities noted. Right Ventricle * The right ventricle is grossly normal size. * The right ventricular systolic function is normal as assessed by tricuspid annular plane systolic excursion (TAPSE) (normal >1.5 cm). Atria * The left atrial size is normal. * Right atrial size is normal. * There is no evidence of atrial septal defect, but resolution does not allow assessment for a patent foramen ovale. Mitral Valve * The mitral valve is grossly normal. * Mitral stenosis is absent. * Significant mitral regurgitation is absent. Tricuspid Valve * There is no tricuspid stenosis. * There is trace tricuspid regurgitation. * Right ventricular systolic pressure is normal. Aortic Valve * The aortic valve opens well. * The aortic valve is trileaflet. * No hemodynamically significant valvular aortic stenosis. * There is no significant aortic regurgitation. Pulmonic Valve * The pulmonary valve is inadequately visualized, but the Doppler data is adequate for interpretation. * There is no significant pulmonary regurgitation. Great Vessels * The aortic root and proximal ascending aorta are normal sized. Pericardium * There is no pericardial effusion. Stress Parameters * Normal baseline electrocardiogram. * Stress ECG: No ST changes. No arrhythmias. * No arrhythmia were noted with stress. * The stress portion of this study was personally supervised by the undersigned interpreting physician. * Rest heart rate was '62' BPM. * Rest blood pressure was '138/77' * Maximum heart rate achieved was 155 bpm. * Maximum heart rate was 95 % of maximum age-predicted heart rate. * Maximum blood pressure was '211/69' * Total exercise time was '06:19' * Maximum exercise MET level achieved was '7.40' METS * Maximum treadmill speed was '3.40' miles per hour. * Maximum treadmill elevation was '14.00'% grade. Left Ventricular Findings with Stress * The study was technically good with many images being of high quality. MMode 2D Measurements and Calculations IVSd 1.1 cm IVSs 1.5 cm LVIDd 4.5 cm LVIDs 4.0 cm LVPWd 1.0 cm LVPWs 1.2 cm IVS/LVPW 1.1 FS 12.3 % EDV(Teich) 94.1 ml ESV(Teich) 69.0 ml EF(Teich) 26.7 % EDV(cubed) 93.2 ml ESV(cubed) 62.8 ml EF(cubed) 32.6 % % IVS thick 43.3 % % LVPW thick 20.6 % LV mass(C)d 163.1 grams LV mass(C)dI 92.9 grams/m\S\2 LV mass(C)s 200.7 grams LV mass(C)sI 114.4 grams/m\S\2 SV(Teich) 25.1 ml SI(Teich) 14.3 ml/m\S\2 SV(cubed) 30.4 ml SI(cubed) 17.3 ml/m\S\2 Ao root diam 2.8 cm Ao root area 6.2 cm\S\2 LA dimension 3.3 cm LA/Ao 1.2 LVOT diam 1.9 cm LVOT area 2.8 cm\S\2 LVAd ap4 25.3 cm\S\2 LVLd ap4 7.4 cm EDV(MOD-sp4) 69.2 ml EDV(sp4-el) 73.4 ml LVAs ap4 17.5 cm\S\2 LVLs ap4 6.5 cm ESV(MOD-sp4) 39.0 ml ESV(sp4-el) 40.2 ml EF(MOD-sp4) 43.6 % EF(sp4-el) 45.2 % LVAd ap2 31.3 cm\S\2 LVLd ap2 7.9 cm EDV(MOD-sp2) 98.9 ml EDV(sp2-el) 104.6 ml LVAs ap2 21.7 cm\S\2 LVLs ap2 6.9 cm ESV(MOD-sp2) 56.3 ml ESV(sp2-el) 58.2 ml EF(MOD-sp2) 43.1 % EF(sp2-el) 44.4 % LVLd %diff 7.0 % EDV(MOD-bp) 86.0 ml LVLs %diff 5.9 % ESV(MOD-bp) 48.6 ml EF(MOD-bp) 43.4 % SV(MOD-sp4) 30.2 ml SI(MOD-sp4) 17.2 ml/m\S\2 SV(MOD-sp2) 42.6 ml SI(MOD-sp2) 24.3 ml/m\S\2 SV(MOD-bp) 37.3 ml SI(MOD-bp) 21.3 ml/m\S\2 SV(sp4-el) 33.2 ml SI(sp4-el) 18.9 ml/m\S\2 SV(sp2-el) 46.4 ml SI(sp2-el) 26.4 ml/m\S\2 Doppler Measurements and Calculations MV E max izabella 87.9 cm/sec MV A max izabella 90.6 cm/sec MV E/A 0.97 MV P1/2t max izabella 97.7 cm/sec MV P1/2t 46.9 msec MVA(P1/2t) 4.7 cm\S\2 MV dec slope 610.2 cm/sec\S\2 MV dec time 0.20 sec Ao V2 max 134.8 cm/sec Ao max PG 7.3 mmHg Ao max PG (full) 1.3 mmHg KIRSTEN(V,A) 2.6 cm\S\2 KIRSTEN(V,D) 2.6 cm\S\2 LV V1 max PG 5.9 mmHg LV V1 max 121.9 cm/sec MR max izabella 476.4 cm/sec MR max PG 90.8 mmHg PA V2 max 80.0 cm/sec PA max PG 2.6 mmHg TR max izabella 266.7 cm/sec
[2016-10-08] MEDS ORDERED: QUETIAPINE FUMARATE 200 MG TAB PO SCH (21:00)
[2016-10-08] MEDS ORDERED: PRAZOSIN HCL 1 MG CAP PO SCH (21:00)
--- NOTE | 2016-10-09 08:59 | Discharge Summary ---
Discharge Summary Date of Service Oct 08, 2016. Discharge Summary Admission Date: Oct 08, 2016 at 03:42 Discharge Date: Oct 08, 2016 Discharge Disposition: Home Principal Diagnosis: non cardiac chest pain Procedures: stress echo negative Medication Reconciliation Continued Medications: Aspirin (Aspirin Ec) 81 Mg Tab 81 MG PO DAILY Atorvastatin (Atorvastatin Calcium) 10 Mg Tab 10 MG PO DAILY Bupropion HCl (Bupropion HCl Sr) 150 Mg Tabcr 150 MG PO BID Buspirone HCl (Buspirone HCl) 15 Mg Tab 15 MG PO BID Doxepin Hcl (Sinequan) 50 Mg Cap 50 MG PO DAILY Dulaglutide (Trulicity) 0.75 Mg/0.5 Ml Inj 0.75 MG INJ WK EVERY WEDNESDAY Ergocalciferol (Vitamin D 76895 Unit) 50,000 Unit Cap 63748 INTER.UNIT PO WK EVERY WEDNESDAY Gabapentin (Gabapentin) 300 Mg Cap 600 MG PO TID Glimepiride (Glimepiride) 4 Mg Tab 4 MG PO QAM Metformin Hcl (Glucophage) 1,000 Mg Tab 1000 MG PO BID, TAB Prazosin HCl (Prazosin HCl) 1 Mg Cap 2 MG PO HS Quetiapine Fumarate (Quetiapine Fumarate) 400 Mg Tab 400 MG PO HS Ranitidine Hcl (Zantac) 300 Mg Tab 300 MG PO QAM Discharge Exam Review of Systems: Constitutional: No fever, No chills Cardiovascular: No chest pain (no further chest pain) Physical Exam: General Appearance: WD/WN, no apparent distress Respiratory/Chest: chest non-tender, lungs clear, normal breath sounds Cardiovascular: regular rate, rhythm, no murmur Hospital Course for her chest pain , pt has negative stress test and feels issues maybe more musculoskeletal will suggested PCP follow up and continue home medications smoking cessation counseling Total Time Spent: Greater than 30 minutes This includes examination of the patient, discharge planning, medication reconciliation, and communication with other providers. Discharge Instructions Please refer to the electronic Patient Visit Report (Discharge Instructions) for additional information.
== END 2016-10-08 15:40 | disposition home or self-care (01) ==
LOC: C.EDB 23:14 → C.MED 10-08 03:42 → ENRESERV 10-08 03:51
PROVIDERS: ADMIT Family Medicine; ATTEND Internal Medicine
DX: R07.89 Other chest pain (principal); E11.9 Type 2 diabetes mellitus without complications; F32.9 Major depressive disorder, single episode, unspecified; J44.9 Chronic obstructive pulmonary disease, unspecified; F17.210 Nicotine dependence, cigarettes, uncomplicated; Z79.82 Long term (current) use of aspirin; Z79.84 Long term (current) use of oral hypoglycemic drugs; Z79.899 Other long term (current) drug therapy

== ENCOUNTER → 2016-10-21 | Outpatient (CLI) | payer OTHER ==
[~2016-10-21] MED LIST changes: +OPTIRAY 320 IV PRN
[2016-10-21 09:20] LABS: BASO % 0.3 %; BASO ABS # 0.05 K/uL (0-0.2); COMPLETE YES; EOS % 1.3 %; HEMATOCRIT 41.2 % (37-47); IG% 0.1 %; LYMPH % 19.3 %; LYMPH ABS # 2.84 K/uL (1.2-3.4); MEAN CELL VOLUME 89.6 fL (80-100); MEAN CORPUSCULAR HGB CONC 33.5 g/dl (32-36); MEAN PLATELET VOLUME 10.9 fL (7.4-10.4); MONO % 5.4 %; NEUT % 73.6 %; PLATELET COUNT 236 K/uL (130-400); WHITE BLOOD COUNT 14.73 K/uL (4.8-10.8)
[2016-10-21 09:25] LABS: ESTIMATED AVERAGE GLUCOSE 151 mg/dl; HA1C FLAG Normal (Normal)
[2016-10-21 09:50] LABS: ALT/SGPT 25 U/L (12-78); BLOOD UREA NITROGEN 13 mg/dl (7-18); BUN/CREATININE RATIO 13.4 (10-20); CALCIUM 9.3 mg/dl (8.5-10.1); CARBON DIOXIDE 25 mmol/L (21-32); CHLORIDE 109 mmol/L (98-107); CHOLESTEROL 141 mg/dl (0-200); CREATININE 0.93 mg/dl (0.60-1.20); GLUCOSE 173 mg/dl (70-99); POTASSIUM 4.1 mmol/L (3.5-5.1); SODIUM 142 mmol/L (136-145)
[2016-10-21 09:51] LABS: ALB/GLOB RATIO 1.1 (0.9-2); ALKALINE PHOSPHATASE 92 U/L (45-117); AST/SGOT 17 U/L (15-37); CHOLESTEROL/HDL RATIO 3.7; HDL CHOLESTEROL 38 mg/dl; LDL CHOLESTEROL CALCULATED 72 mg/dl; TRIGLYCERIDES 153 mg/dl (0-150); VERY LOW DENSITY LIPOPROT CALC 31 mg/dl
--- NOTE | 2016-10-21 11:06 | DIAGNOSTIC IMAGING REPORT ---
(CHEST FOR PE) ANGIO WITH CT DOSE: 504.00 mGy.cm HISTORY: 56 years-old Female acute shortness of breath and concern for pulmonary embolus. TECHNIQUE: Multiple CTA images of the chest were obtained after the intravenous administration of 120 ml Optiray 320. Coronal and sagittal MIPS were obtained from the axial data set and were submitted for review. A dose lowering technique was utilized adhering to the principles of ALARA. COMPARISON: CT of the chest 11/26/2015 and 03/26/2015. FINDINGS: CTA: Heart is mildly enlarged without pericardial effusion. Coronary arterial calcifications are present. Left vertebral artery emanates directly from the aortic arch. There is no aortic dissection or aneurysm. Mild atherosclerotic plaquing of the aorta is present. There is adequate opacification of the pulmonary arterial tree. No filling defects are seen to suggest pulmonary thromboembolic disease. CT CHEST: Mild right hilar adenopathy is seen measuring up to 1.4 x 1.5 cm. Mild left hilar adenopathy is also seen measuring up to 1.3 x 1.0 cm. Mildly prominent pretracheal lymph node measures 10 x 7 mm. There is no pneumothorax or pleural effusion. Dependent atelectasis is seen within the lung bases. Upper lobe predominant centrilobular and paraseptal emphysematous changes are present. Linear pleural-based consolidative opacity within the superior segment right lower lobe suggests atelectasis. There are scattered multifocal groundglass opacities with minimal consolidation of the right middle lobe. Postsurgical changes are seen within the left lung apex. 5 mm noncalcified pulmonary nodule is seen within the left lower lobe on image 88 of the axial series, unchanged from 03/26/2015 exam. No new or suspicious pulmonary nodules are seen. Respiratory motion limits evaluation of the lung bases. There is diffuse fatty infiltration of the liver. Upper abdominal structures are within normal limits. The soft tissues are within normal limits. The bones appear to be intact. IMPRESSION: 1. No pulmonary embolus or acute aortic pathology. 2. Scattered groundglass opacities of the bilateral lungs suggests atelectasis on a background of upper lobe predominant centrilobular and paraseptal emphysema. 3. Mild nonspecific hilar and mediastinal adenopathy may be reactive. 4. Fatty infiltration of the liver. The above report was generated using voice recognition software. It may contain grammatical, syntax or spelling errors. Electronically signed by: Huber Munguia M.D. 10/21/2016 11:05 AM Dictated Date/Time: 10/21/2016 10:57 AM
== END | disposition home or self-care (01) ==
LOC: C.CTS 08:25
PROVIDERS: ATTEND Physician Assistant
DX: Z00.00 Encounter for general adult medical examination without abnormal findings (principal); R06.02 Shortness of breath; E11.9 Type 2 diabetes mellitus without complications; E78.5 Hyperlipidemia, unspecified; J44.9 Chronic obstructive pulmonary disease, unspecified; R91.8 Other nonspecific abnormal finding of lung field; K76.0 Fatty (change of) liver, not elsewhere classified

== ENCOUNTER → 2016-12-08 | Outpatient (CLI) | payer OTHER ==
[~2016-12-08] MED LIST changes: -OPTIRAY 320 IV PRN
[2016-12-08 15:12] LABS: THYROID STIMULATING HORMONE 1.12 uIu/ml (0.300-4.500)
[2016-12-09 06:02] LABS: ESTIMATED AVERAGE GLUCOSE 140 mg/dl; HA1C FLAG Normal (Normal)
== END | disposition home or self-care (01) ==
LOC: C.LAB1850 13:11
PROVIDERS: ATTEND Internal Medicine Endocrinology, Diabetes & Metabolism
DX: E11.65 Type 2 diabetes mellitus with hyperglycemia (principal); E55.9 Vitamin D deficiency, unspecified

== ENCOUNTER 2017-05-15 02:16 | Emergency (ER) | payer OTHER ==
[~2017-05-15] VITALS: Ht 154.9 cm; Wt 79.2 kg
[~2017-05-15 02:16] MED LIST changes: -ASPI81TA28 PO; -BSP15 PO; -DULA1INJ INJ; -ERGO1CAP41 PO; +ERGO500011 PO; -GABA1CAP4 PO; -GLIM4TAB2 PO; -LPT10 PO; -METF-384 PO; -PRZ1 PO; -RANI300T PO; -SNQ/50 PO; -SRQ400 PO; -WLLSR150 PO
[2017-05-15 02:18] VITALS: TEMP 36.7; Ht 154.9 cm; Wt 79.2 kg
[2017-05-15] MEDS ORDERED: ONDANSETRON INJ 2 MG/ML 2 ML VIAL IV STA (03:18)
[2017-05-15] MEDS ORDERED: HYDROmorphone INJ 1 MG/ML SYR IV STA (03:18)
[2017-05-15] MEDS ORDERED: SODIUM CHLORIDE 0.9% 1000ML 1,000 ML IV ONE (03:30)
[2017-05-15 03:57] LABS: BASO % 0.3 %; BASO ABS # 0.03 K/uL (0-0.2); EOS % 1.8 %; EOS ABS # 0.21 K/uL (0-0.5); HEMATOCRIT 35.5 % (37-47); HEMOGLOBIN 12.3 g/dL (12.0-16.0); IG# 0.03 K/uL (0.00-0.02); LYMPH % 38.3 %; LYMPH ABS # 4.37 K/uL (1.2-3.4); MEAN CELL VOLUME 88.8 fL (80-100); MEAN CORPUSCULAR HEMOGLOBIN 30.8 pg (25-34); MEAN CORPUSCULAR HGB CONC 34.6 g/dl (32-36); MEAN PLATELET VOLUME 10.4 fL (7.4-10.4); MONO % 7.7 %; MONO ABS # 0.88 K/uL (0.11-0.59); NEUT % 51.6 %; NEUT ABS # 5.89 K/uL (1.4-6.5); PLATELET COUNT 209 K/uL (130-400); RED CELL DISTRIBUTION WIDTH CV 12.7 % (11.5-14.5); RED CELL DISTRIBUTION WIDTH SD 41.3 fL (36.4-46.3); WHITE BLOOD COUNT 11.41 K/uL (4.8-10.8)
[2017-05-15 04:13] LABS: ALBUMIN 3.1 gm/dl (3.4-5.0); CALCIUM 8.4 mg/dl (8.5-10.1); CREATININE 0.74 mg/dl (0.60-1.20); POTASSIUM 3.6 mmol/L (3.5-5.1)
[2017-05-15 04:15] LABS: TOTAL PROTEIN 6.3 gm/dl (6.4-8.2)
[2017-05-15 06:50] VITALS: BP 137/74; PULSE 92; O2SAT 94
--- NOTE | 2017-05-15 06:53 | DIAGNOSTIC IMAGING REPORT ---
ABDOMINAL ULTRASOUND, RIGHT UPPER QUADRANT HISTORY: Right upper quadrant pain.. COMPARISON: Abdominal ultrasound 09/22/2015. FINDINGS: Pancreas: The pancreas demonstrates a normal echotexture. Liver: The liver is echogenic consistent with fatty change. Hypoechoic area near the gallbladder fossa likely representing focal fatty sparing. Gallbladder: Echogenic foci with ringdown artifact near the gallbladder fundus. This favors adenomyomatosis. No gallstones identified. No gallbladder wall thickening. CBD: 4 mm. Right kidney: No hydronephrosis. IMPRESSION: 1. No gallbladder wall thickening. No gallstones. 2. Adenomyomatosis of the gallbladder fundus. 3. Normal caliber common bile duct. 4. Hepatic steatosis. Electronically signed by: Rainer Adler M.D. 05/15/2017 6:52 AM Dictated Date/Time: 05/15/2017 6:50 AM
--- NOTE | 2017-05-16 00:38 | EMERGENCY ROOM VISIT NOTE ---
History First contact with patient: 02:56 Chief Complaint: ABDOMINAL PAIN Stated Complaint: BAD PAIN IN UPPER ABDOMEN Nursing Triage Summary: pt c/o epigastric abd pain since 10pm yesterday. states "the last time i had this it was pancreatitis." pt denies n/v. states "I didn't move my bowels today." pt alert and oriented x4, breathing WNL. History of Present Illness The patient is a 57 year old female who presents to the Emergency Room with complaints of abdominal pain for the past 5 hours. She states that her pain is primarily in the epigastric and right upper quadrant. She is without nausea, vomiting, diarrhea, or constipation. She has had symptoms like this several times in the past, and states it is usually associated with pancreatitis. She is unsure if food improves or worsens her symptoms. She does not have fever or chills. No chest pain, chest tightness, or shortness of breath. She has never had abdominal surgery. She rates her discomfort an 8/10 that does not radiate. Review of Systems More than 10 systems were reviewed and otherwise negative with the exception of history of present illness. Past Medical/Surgical History Medical Problems: (1) Back spasm (2) Depression (3) Diabetes (4) Heroin addiction (5) Precordial chest pain (6) Pseudogout of knee Surgical Problems: (1) H/O: hysterectomy (2) Previous section Family History Diabetes mellitus Hypertension Lung disease Social History Smoking Status: Current Every Day Smoker Alcohol Use: none Drug Use: other Marital Status: in relationship Housing Status: lives with significant other Occupation Status: unemployed Current/Historical Medications Scheduled Aspirin (Aspirin Ec), 81 MG PO DAILY Atorvastatin (Lipitor), 10 MG PO DAILY Bupropion HCl (Bupropion HCl Sr), 150 MG PO BID Buspirone HCl (Buspirone HCl), 15 MG PO BID Doxepin Hcl (Sinequan), 50 MG PO DAILY Dulaglutide (Trulicity), 0.75 MG INJ WK Gabapentin (Gabapentin), 300 MG PO HS Glimepiride (Glimepiride), 4 MG PO QAM Metformin Hcl (Glucophage), 1,000 MG PO BID Prazosin HCl (Prazosin HCl), 2 MG PO HS Quetiapine Fumarate (Quetiapine Fumarate), 400 MG PO HS Ranitidine Hcl (Zantac), 300 MG PO QAM Physical Exam Vital Signs Date Time Temp Pulse Resp B/P (MAP) Pulse Ox O2 Delivery O2 Flow Rate FiO2 05/15/17 06:50 92 20 137/74 94 05/15/17 06:30 86 05/15/17 06:00 85 20 119/73 92 Room Air 05/15/17 05:00 84 16 131/74 92 Room Air 05/15/17 03:29 87 16 153/91 95 Room Air 05/15/17 02:31 88 05/15/17 02:18 36.7 102 24 155/77 98 Room Air Physical Exam VITALS: Vitals are noted on the nurse's note and reviewed by myself. Vital signs stable. GENERAL: Well-developed, well-nourished, white female who appears moderately uncomfortable on examination. She is cooperative. NECK: Supple without nuchal rigidity. No lymphadenopathy. No thyromegaly. Cervical spine is nontender. HEART: Regular rate and rhythm without murmurs gallops or rubs. LUNGS: Clear to auscultation bilaterally without wheezes, rales or rhonchi. No retractions or accessory muscle use. ABDOMEN: Positive normal bowel sounds x 4. Soft with positive right upper quadrant and epigastric tenderness on palpation. No lower abdominal tenderness. No rebound or guarding. No CVA tenderness. MUSCULOSKELETAL: No muscle atrophy, erythema, or edema noted. Full range of motion without joint tenderness in all extremities. Medical Decision & Procedures ER Provider Diagnostic Interpretation: ABDOMINAL ULTRASOUND, RIGHT UPPER QUADRANT HISTORY: Right upper quadrant pain.. COMPARISON: Abdominal ultrasound 09/22/2015. FINDINGS: Pancreas: The pancreas demonstrates a normal echotexture. Liver: The liver is echogenic consistent with fatty change. Hypoechoic area near the gallbladder fossa likely representing focal fatty sparing. Gallbladder: Echogenic foci with ringdown artifact near the gallbladder fundus. This favors adenomyomatosis. No gallstones identified. No gallbladder wall thickening. CBD: 4 mm. Right kidney: No hydronephrosis. IMPRESSION: 1. No gallbladder wall thickening. No gallstones. 2. Adenomyomatosis of the gallbladder fundus. 3. Normal caliber common bile duct. 4. Hepatic steatosis. Laboratory Results 05/15/17 03:47 Red Blood Count 4.00, Mean Corpuscular Volume 88.8, Mean Corpuscular Hemoglobin 30.8, Mean Corpuscular Hemoglobin Concent 34.6, Mean Platelet Volume 10.4, Neutrophils (%) (Auto) 51.6, Lymphocytes (%) (Auto) 38.3, Monocytes (%) (Auto) 7.7, Eosinophils (%) (Auto) 1.8, Basophils (%) (Auto) 0.3, Neutrophils # (Auto) 5.89, Lymphocytes # (Auto) 4.37, Monocytes # (Auto) 0.88, Eosinophils # (Auto) 0.21, Basophils # (Auto) 0.03 05/15/17 03:47 Test 05/15/17 03:20 05/15/17 03:47 05/15/17 03:50 Urine Color YELLOW Urine Appearance CLEAR (CLEAR) Urine pH 5.0 (4.5-7.5) Urine Specific [place] 1.026 (1.000-1.030) Urine Protein NEG (NEG) Urine Glucose (UA) 3+ (NEG) Urine Ketones NEG (NEG) Urine Occult Blood NEG (NEG) Urine Nitrite NEG (NEG) Urine Bilirubin NEG (NEG) Urine Urobilinogen NEG (NEG) Urine Leukocyte Esterase NEG (NEG) White Blood Count 11.41 K/uL (4.8-10.8) Red Blood Count 4.00 M/uL (4.2-5.4) Hemoglobin 12.3 g/dL (12.0-16.0) Hematocrit 35.5 % (37-47) Mean Corpuscular Volume 88.8 fL (80-100) Mean Corpuscular Hemoglobin 30.8 pg (25-34) Mean Corpuscular Hemoglobin Concent 34.6 g/dl (32-36) Platelet Count 209 K/uL (130-400) Mean Platelet Volume 10.4 fL (7.4-10.4) Neutrophils (%) (Auto) 51.6 % Lymphocytes (%) (Auto) 38.3 % Monocytes (%) (Auto) 7.7 % Eosinophils (%) (Auto) 1.8 % Basophils (%) (Auto) 0.3 % Neutrophils # (Auto) 5.89 K/uL (1.4-6.5) Lymphocytes # (Auto) 4.37 K/uL (1.2-3.4) Monocytes # (Auto) 0.88 K/uL (0.11-0.59) Eosinophils # (Auto) 0.21 K/uL (0-0.5) Basophils # (Auto) 0.03 K/uL (0-0.2) RDW Standard Deviation 41.3 fL (36.4-46.3) RDW Coefficient of Variation 12.7 % (11.5-14.5) Immature Granulocyte % (Auto) 0.3 % Immature Granulocyte # (Auto) 0.03 K/uL (0.00-0.02) Anion Gap 6.0 mmol/L (3-11) Est Creatinine Clear Calc Drug Dose 78.0 ml/min Estimated GFR () 102.8 Estimated GFR (Non- 88.7 BUN/Creatinine Ratio 17.3 (10-20) Calcium Level 8.4 mg/dl (8.5-10.1) Total Bilirubin 0.3 mg/dl (0.2-1) Aspartate Amino Transf (AST/SGOT) 9 U/L (15-37) Alanine Aminotransferase (ALT/SGPT) 37 U/L (12-78) Alkaline Phosphatase 100 U/L (45-117) Total Protein 6.3 gm/dl (6.4-8.2) Albumin 3.1 gm/dl (3.4-5.0) Globulin 3.2 gm/dl (2.5-4.0) Albumin/Globulin Ratio 1.0 (0.9-2) Amylase Level 44 U/L (25-115) Lipase 328 U/L (73-393) Bedside Troponin I < 0.030 ng/ml (0-0.045) Medications Administered Medications (Trade) Dose Ordered Sig/Isak Route Start Time Stop Time Status Last Admin Dose Admin Sodium Chloride 1,000 ml @ 999 mls/hr Q1H1M ONCE IV 05/15/17 03:30 05/15/17 04:30 DC 05/15/17 03:27 999 MLS/HR Hydromorphone HCl (Dilaudid Inj) 1 mg NOW STAT IV 05/15/17 03:18 05/15/17 03:20 DC 05/15/17 03:29 1 MG Ondansetron HCl (Zofran Inj) 4 mg NOW STAT IV 05/15/17 03:18 18 03:20 DC 05/15/17 03:26 4 MG ED Course Physical exam and history were performed. Nursing notes, EMR, and Medication List were personally reviewed. Patient appears to have right upper quadrant epigastric abdominal pain for the past 5 hours. She is tender in this distribution on palpation. IV access was established and labs were obtained. The patient was given IV fluids, IV Dilaudid, IV Zofran. Ultrasound was performed. The patient's blood work is as above and was reviewed. She does have a very slightly elevated white blood cell count just over 11,000 but no gross anemia or significant electrolyte imbalance. Amylase and lipase are nondiagnostic. Transaminases are essentially normal. Ultrasound shows polyps but no distinct cholecystitis. Reevaluation the patient was sleeping very comfortably on her left side in the emergency department bed. I had a lengthy discussion with her regarding her symptoms. She felt significantly better after hydration and medication. Repeat abdominal exam showed resolution of her discomfort. I discussed options of care including CT imaging, however the patient did feel comfortable with discharge home. I suspect that she likely has biliary colic and may need outpatient HIDA scan for further characterization. The patient and I discussed the importance of returning to the ER if symptoms worsened, which point we would perform the CT imaging. The patient voiced understanding and was read please of this. She was discharged home under the care of her male waste/materials exchange specialist who is acting as the transportation driver today. The chart was completed utilizing [employer] Speech Voice Recognition Software. Grammatical errors, random word insertions, pronoun errors, and incomplete sentences are an occasional consequence of this system due to software limitations, ambient noise, and hardware issues. Any formal questions or concerns about the content, text, or information contained within the body of this dictation should be directly addressed to the provider for clarification. . Medical Decision Differential diagnosis: Etiologies such as appendicitis, diverticulitis, PUD, biliary pathology, UTI, pancreatitis, obstruction, mesenteric ischemia, aortic pathology, infections, inflammatory bowel disease, renal colic, as well as others were entertained. Impression Primary Impression: Abdominal pain Additional Impression: Biliary colic Departure Information Dispostion Home / Self-Care Condition GOOD Forms Call Back Authorization, HOME CARE DOCUMENTATION FORM, IMPORTANT VISIT INFORMATION Patient Instructions [facility] Additional Instructions You were seen and evaluated today on an emergency basis only. This is not a substitute for, or an effort to provide, complete comprehensive medical care. It is not possible to recognize and treat all injuries or illnesses in a single emergency department visit. For this reason it is recommended that you followup with your primary care physician on Wednesday or Wednesday for recheck of your condition. For baseline pain relief you may alternate ibuprofen and acetaminophen every 4 hours for pain control. Take 600 mg ibuprofen (Advil) and then 4 hours later take 1000 mg acetaminophen (Tylenol). Do not take more than 3000 mg acetaminophen in a single day. Drink plenty of fluids and remain well hydrated. Soft food and liquid diet until seen by your primary care physician. You are welcome to return to the emergency department anytime with new, worsening, or concerning symptoms. Problem Qualifiers
== END 2017-05-15 06:55 | disposition home or self-care (01) ==
LOC: C.EDB 02:17 → C.EDA 06:55
DX: R10.9 Unspecified abdominal pain (principal); K80.50 Calculus of bile duct without cholangitis or cholecystitis without obstruction; E11.9 Type 2 diabetes mellitus without complications; F32.9 Major depressive disorder, single episode, unspecified; F17.200 Nicotine dependence, unspecified, uncomplicated; Z90.710 Acquired absence of both cervix and uterus; Z98.891 History of uterine scar from previous surgery; Z83.3 Family history of diabetes mellitus; Z82.49 Family history of ischemic heart disease and other diseases of the circulatory system; Z79.82 Long term (current) use of aspirin; Z79.899 Other long term (current) drug therapy

== ENCOUNTER 2017-05-18 14:51 | Emergency (ER) | payer OTHER ==
[~2017-05-18] VITALS: Ht 154.9 cm; Wt 81.3 kg
[2017-05-18 14:57] VITALS: TEMP 36.9; Ht 154.9 cm; Wt 81.3 kg
[2017-05-18] MEDS ORDERED: HYDROmorphone INJ 1 MG/ML SYR IV STA ×2 (15:07→16:42)
[2017-05-18] MEDS ORDERED: ONDANSETRON INJ 2 MG/ML 2 ML VIAL IV STA (15:07)
[2017-05-18 15:29] LABS: BASO % 0.5 %; BASO ABS # 0.06 K/uL (0-0.2); EOS ABS # 0.23 K/uL (0-0.5); HEMATOCRIT 38.4 % (37-47); HEMOGLOBIN 13.5 g/dL (12.0-16.0); IG# 0.06 K/uL (0.00-0.02); LYMPH % 31.6 %; LYMPH ABS # 3.56 K/uL (1.2-3.4); MEAN CELL VOLUME 87.7 fL (80-100); MEAN CORPUSCULAR HEMOGLOBIN 30.8 pg (25-34); MEAN CORPUSCULAR HGB CONC 35.2 g/dl (32-36); MEAN PLATELET VOLUME 10.5 fL (7.4-10.4); MONO % 6.2 %; NEUT % 59.2 %; NEUT ABS # 6.65 K/uL (1.4-6.5); PLATELET COUNT 251 K/uL (130-400); RED CELL DISTRIBUTION WIDTH CV 12.9 % (11.5-14.5); RED CELL DISTRIBUTION WIDTH SD 41.8 fL (36.4-46.3); WHITE BLOOD COUNT 11.26 K/uL (4.8-10.8)
[2017-05-18 15:49] LABS: ALBUMIN 3.7 gm/dl (3.4-5.0); ALT/SGPT 46 U/L (12-78); AST/SGOT 16 U/L (15-37); BLOOD UREA NITROGEN 9 mg/dl (7-18); CALCIUM 9.3 mg/dl (8.5-10.1); CARBON DIOXIDE 25 mmol/L (21-32); CREATININE 0.78 mg/dl (0.60-1.20); GLUCOSE 187 mg/dl (70-99); POTASSIUM 4.1 mmol/L (3.5-5.1); SODIUM 142 mmol/L (136-145)
[2017-05-18] MEDS ORDERED: LEVO75TA5 PO (15:52)
[2017-05-18 15:54] LABS: ALKALINE PHOSPHATASE 115 U/L (45-117); TOTAL PROTEIN 7.3 gm/dl (6.4-8.2)
[2017-05-18] MEDS ORDERED: OPTIRAY 320 IV PRN (16:00)
--- NOTE | 2017-05-18 16:27 | DIAGNOSTIC IMAGING REPORT ---
ABD/PELVIS IV CONTRAST ONLY CT DOSE: 593.50 mGy.cm HISTORY: Pain. Nausea. RUQ abdominal pain, nausea TECHNIQUE: Multiaxial CT images of the abdomen and pelvis were performed following the use of intravenous contrast. A dose lowering technique was utilized adhering to the principles of ALARA. COMPARISON STUDY: 09/22/2015 FINDINGS: Lung bases are considered clear. Minimal subsegmental atelectasis medial aspect anterior right middle lobe. Fatty infiltration of the liver. Slight gallbladder wall thickening at the level of the fundal region unchanged from the prior exam. Pancreas is unremarkable. Spleen is uniform. The adrenal glands are unremarkable. Kidneys enhance uniformly. No evidence for hydronephrosis. Bowel pattern is nonobstructive. Normal appendix. IMPRESSION: 1. Fatty infiltration of the liver. 2. Slight wall thickening gallbladder fundus unchanged from the prior exam. 3. Otherwise negative abdomen and pelvis. The above report was generated using voice recognition software. It may contain grammatical, syntax or spelling errors. Electronically signed by: Jerson Seaman M.D. 05/18/2017 4:26 PM Dictated Date/Time: 05/18/2017 4:21 PM
--- NOTE | 2017-05-18 16:28 | EMERGENCY ROOM VISIT NOTE ---
History First contact with patient: 15:00 Chief Complaint: ABDOMINAL PAIN Stated Complaint: SIDE PAIN REACHING FROM BELLY TO BACK Nursing Triage Summary: Pt c/o right sided abdominal pain, presented to [facility] on Monday 05/15 and was advised the issue was likely her gallbadder. Pt was discharged to home and advised to follow up with PCP. Pt has done so and would see him later this week for an appointment. Pt reported she ate dinner last night and had an additional exacerbation of the pain. Pt presents to ED again this afternoon with right sided abdominal pain, moving into her back, rating it as a "twenty out of ten". Pt reports extreme pain, nausea, and sometimes vomiting with any repositioning and movement. Pt denies trauma. History of Present Illness The patient is a 57 year old female who presents to the Emergency Room with complaints of right-sided abdominal pain. The patient was seen here 3 days ago for similar symptoms. At that time, she had a negative ultrasound of her gallbladder and was told that she would need further studies performed as an outpatient. She contacted her primary care provider and has an appointment later this week. She states that last night, she ate a cheese sandwich and her pain worsened afterward. She states her current discomfort is worse than it was last time she was here. She rates her pain a 10/10. She states the pain is located in the right upper abdomen and radiates into the right side of the back. She has had associated nausea, but no vomiting. She has been taking ibuprofen at home with no relief. She feels that her abdomen is "swollen." She reports history of prior C-sections, hysterectomy and inguinal hernia repair. Her bowel movements have decreased since the pain started, but she also states she has been eating less because she is afraid to eat. She denies any chest pain, shortness of breath, urinary symptoms or fever/chills. Review of Systems A complete 10 point review of systems was reviewed with the patient with pertinent positives and negatives as per history of present illness. All else were negative. Past Medical/Surgical History Medical Problems: (1) Back spasm (2) Depression (3) Diabetes (4) Heroin addiction (5) Precordial chest pain (6) Pseudogout of knee Surgical Problems: (1) H/O: hysterectomy (2) Previous section Family History Diabetes mellitus Hypertension Lung disease Social History Smoking Status: Current Every Day Smoker Alcohol Use: none Drug Use: other Marital Status: in relationship Housing Status: lives with significant other Occupation Status: unemployed Current/Historical Medications Scheduled Aspirin (Aspirin Ec), 81 MG PO DAILY Atorvastatin (Lipitor), 10 MG PO DAILY Bupropion HCl (Bupropion HCl Sr), 150 MG PO BID Buspirone HCl (Buspirone HCl), 15 MG PO BID Doxepin Hcl (Sinequan), 50 MG PO HS Dulaglutide (Trulicity), 0.75 MG SC WK Gabapentin (Gabapentin), 300 MG PO HS Glimepiride (Glimepiride), 4 MG PO QAM Levothyroxine Sodium (Levothyroxine Sodium), 75 MCG PO DAILY Metformin Hcl (Glucophage), 1,000 MG PO BID Ondasetron Odt (Zofran Odt), 4 MG SL Q6H Prazosin HCl (Prazosin HCl), 2 MG PO HS Quetiapine Fumarate (Quetiapine Fumarate), 400 MG PO HS Ranitidine Hcl (Zantac), 300 MG PO QAM Scheduled PRN Oxycodone/Acetaminophen 5MG/325MG (Percocet 5MG/325MG), 1 TAB PO Q4H PRN for Pain Physical Exam Vital Signs Date Time Temp Pulse Resp B/P (MAP) Pulse Ox O2 Delivery O2 Flow Rate FiO2 05/18/17 18:15 75 18 150/86 97 05/18/17 17:01 87 20 130/76 97 Room Air 05/18/17 16:36 86 20 134/74 97 Room Air 05/18/17 15:25 91 18 134/89 95 05/18/17 14:57 36.9 107 20 161/73 98 Room Air Physical Exam VITALS: Vitals are noted on the nurse's note and reviewed by myself. Vital signs stable. GENERAL: This is a 57-year-old female, in no acute distress, nondiaphoretic, well-developed well-nourished. SKIN: The skin was without rashes. HEAD: Normocephalic atraumatic. EARS: External auditory canals clear, tympanic membranes pearly del rosario without erythema or effusion bilaterally. EYES: Pupils equal round and reactive to light and accommodation. MOUTH: Mucous membranes moist. Tonsils are not enlarged. Pharynx without erythema or exudate. NECK: Supple without nuchal rigidity. No lymphadenopathy. HEART: Regular rate and rhythm without murmurs gallops or rubs. LUNGS: Clear to auscultation bilaterally without wheezes, rales or rhonchi. ABDOMEN: Positive bowel sounds x 4. Soft, nondistended. There is tenderness to palpation in the right mid to upper abdomen. No guarding or rebound tenderness. NEURO: Patient was alert and oriented to person place and time. Medical Decision & Procedures ER Provider Diagnostic Interpretation: ABD/PELVIS IV CONTRAST ONLY FINDINGS: Lung bases are considered clear. Minimal subsegmental atelectasis medial aspect anterior right middle lobe. Fatty infiltration of the liver. Slight gallbladder wall thickening at the level of the fundal region unchanged from the prior exam. Pancreas is unremarkable. Spleen is uniform. The adrenal glands are unremarkable. Kidneys enhance uniformly. No evidence for hydronephrosis. Bowel pattern is nonobstructive. Normal appendix. IMPRESSION: 1. Fatty infiltration of the liver. 2. Slight wall thickening gallbladder fundus unchanged from the prior exam. 3. Otherwise negative abdomen and pelvis. Laboratory Results 05/18/17 15:17 Red Blood Count 4.38, Mean Corpuscular Volume 87.7, Mean Corpuscular Hemoglobin 30.8, Mean Corpuscular Hemoglobin Concent 35.2, Mean Platelet Volume 10.5, Neutrophils (%) (Auto) 59.2, Lymphocytes (%) (Auto) 31.6, Monocytes (%) (Auto) 6.2, Eosinophils (%) (Auto) 2.0, Basophils (%) (Auto) 0.5, Neutrophils # (Auto) 6.65, Lymphocytes # (Auto) 3.56, Monocytes # (Auto) 0.70, Eosinophils # (Auto) 0.23, Basophils # (Auto) 0.06 05/18/17 15:17 Test 05/18/17 15:10 05/18/17 15:17 Urine Color YELLOW Urine Appearance CLEAR (CLEAR) Urine pH 5.0 (4.5-7.5) Urine Specific Dexter 1.018 (1.000-1.030) Urine Protein NEG (NEG) Urine Glucose (UA) 3+ (NEG) Urine Ketones NEG (NEG) Urine Occult Blood NEG (NEG) Urine Nitrite NEG (NEG) Urine Bilirubin NEG (NEG) Urine Urobilinogen NEG (NEG) Urine Leukocyte Esterase NEG (NEG) White Blood Count 11.26 K/uL (4.8-10.8) Red Blood Count 4.38 M/uL (4.2-5.4) Hemoglobin 13.5 g/dL (12.0-16.0) Hematocrit 38.4 % (37-47) Mean Corpuscular Volume 87.7 fL (80-100) Mean Corpuscular Hemoglobin 30.8 pg (25-34) Mean Corpuscular Hemoglobin Concent 35.2 g/dl (32-36) Platelet Count 251 K/uL (130-400) Mean Platelet Volume 10.5 fL (7.4-10.4) Neutrophils (%) (Auto) 59.2 % Lymphocytes (%) (Auto) 31.6 % Monocytes (%) (Auto) 6.2 % Eosinophils (%) (Auto) 2.0 % Basophils (%) (Auto) 0.5 % Neutrophils # (Auto) 6.65 K/uL (1.4-6.5) Lymphocytes # (Auto) 3.56 K/uL (1.2-3.4) Monocytes # (Auto) 0.70 K/uL (0.11-0.59) Eosinophils # (Auto) 0.23 K/uL (0-0.5) Basophils # (Auto) 0.06 K/uL (0-0.2) RDW Standard Deviation 41.8 fL (36.4-46.3) RDW Coefficient of Variation 12.9 % (11.5-14.5) Immature Granulocyte % (Auto) 0.5 % Immature Granulocyte # (Auto) 0.06 K/uL (0.00-0.02) Anion Gap 7.0 mmol/L (3-11) Est Creatinine Clear Calc Drug Dose 75.0 ml/min Estimated GFR () 96.4 Estimated GFR (Non- 83.2 BUN/Creatinine Ratio 11.9 (10-20) Calcium Level 9.3 mg/dl (8.5-10.1) Total Bilirubin 0.2 mg/dl (0.2-1) Direct Bilirubin < 0.1 mg/dl (0-0.2) Aspartate Amino Transf (AST/SGOT) 16 U/L (15-37) Alanine Aminotransferase (ALT/SGPT) 46 U/L (12-78) Alkaline Phosphatase 115 U/L (45-117) Total Protein 7.3 gm/dl (6.4-8.2) Albumin 3.7 gm/dl (3.4-5.0) Medications Administered Medications (Trade) Dose Ordered Sig/Isak Route Start Time Stop Time Status Last Admin Dose Admin Hydromorphone HCl (Dilaudid Inj) 1 mg NOW STAT IV 05/18/17 15:07 05/18/17 15:10 DC 05/18/17 15:22 1 MG Ondansetron HCl (Zofran Inj) 4 mg NOW STAT IV 05/18/17 15:07 05/18/17 15:10 DC 05/18/17 15:21 4 MG Hydromorphone HCl (Dilaudid Inj) 1 mg NOW STAT IV 05/18/17 16:42 05/18/17 16:43 DC 05/18/17 16:58 1 MG Medical Decision Differential diagnosis includes cholecystitis, pancreatitis, kidney stone, pyelonephritis, small bowel obstruction, enteritis, gastritis, peptic ulcer disease, colitis, herpes zoster, among others. The patient is a 57-year-old female who presents today complaining of right- sided abdominal pain. Labs revealed a mild leukocytosis of 11.26, similar to her recent visit. Urinalysis was not suggestive of infection. LFTs and creatinine within normal limits. Lipase was not elevated. CT of the abdomen and pelvis was obtained and read by radiology with no acute findings. Patient may certainly have biliary colic, however does not have any acute findings which will require surgery for admission. Pain was under control with IV pain medication. I offered the patient admission for further workup/pain control versus discharge home with a prescription for narcotics and she prefers to be discharged home. She does have a follow-up appointment scheduled with her primary care provider first thing tomorrow morning. She is comfortable with this plan of care. She will return here sooner if she has worsening or new/ concerning symptoms in the meantime. The patient's case was reviewed with Dr. Patel, ED attending physician, who agreed with my assessment and treatment plan. Based on the patient's presentation and work up, I feel the patient is stable for outpatient treatment. The patient was educated to return to the emergency department for any worsening of their current condition or new/concerning symptoms. She will follow up with her PCP. Medication Reconcilliation Current Medication List: was personally reviewed by me Blood Pressure Screening Patient's blood pressure: Elevated blood pressure Blood pressure disposition: Elevated BP felt to be situational Impression Primary Impression: Abdominal pain, right upper quadrant Departure Information Dispostion Home / Self-Care Condition GOOD Prescriptions Ondasetron Odt (ZOFRAN ODT) 4 Mg Tab 4 MG SL Q6H for Nausea, #12 TAB Prov: Preeti Nguyen PA-C 05/18/17 Oxycodone/Acetaminophen 5MG/325MG (PERCOCET 5MG/325MG) Tab 1 TAB PO Q4H Y for Pain, #12 TAB For Initial Treatment Prov: Preeti Nguyen PA-C 05/18/17 Referrals Geneva Loving M.D. (PCP) Patient Instructions [facility] Additional Instructions You have been treated in the Emergency Department for your Abdominal Pain. Laboratory results and imaging studies have ruled out any emergent causes for your abdominal pain which would warrant admission or surgery. You have been prescribed Percocet to be used for pain control. This is a narcotic medication. You cannot drive or consume alcohol while on this medicine. This medicine should only be used for pain that cannot be controlled with [id number] pain medicines. You have been prescribed Zofran to be used for any nausea or vomiting. Take as prescribed. For pain control, you can use the following [id number] medicines (if >12 yo): - Regular strength (325mg/tab) Tylenol (acetaminophen) 2 tabs every 4-6 hours as needed. Do not exceed 12 tablets in a 24 hour period. Avoid taking more than 4 grams (4000 mg) of Tylenol per day. This includes any other sources of acetaminophen you may take on a regular basis. - Regular strength (200 mg/tab) Advil (ibuprofen) 1-2 tabs every 4-6 hours as needed. Do not exceed a dose of 3200 mg per day. Drink plenty of water and stay well hydrated. You should keep a very bland and low fat diet. Try to eat foods such as toast, crackers, broth, applesauce, etc. Follow-up with your primary care provider tomorrow morning as scheduled. Return to the emergency department if your symptoms persist despite treatment plan outlined above or if the following symptoms occur: Persistent vomiting, worsening pain, fevers, chest pain, shortness of breath or any other new/ concerning symptoms.
[2017-05-18] MEDS ORDERED: DULA1INJ SC (17:02)
[2017-05-18] MEDS ORDERED: BSP15 PO (17:02)
[2017-05-18] MEDS ORDERED: METF-384 PO (17:23)
[2017-05-18] MEDS ORDERED: OXYC-57 PO (17:31)
[2017-05-18] MEDS ORDERED: ONDA4TAB10 SL (17:35)
[2017-05-18 18:15] VITALS: BP 150/86; PULSE 75; O2SAT 97
[2017-05-18] MEDS ORDERED: RANI300T PO (22:26)
[2017-05-18] MEDS ORDERED: GLIM4TAB2 PO (22:26)
[2017-05-18] MEDS ORDERED: QUET1TAB20 PO (22:26)
[2017-05-18] MEDS ORDERED: PRZ1 PO (22:26)
[2017-05-18] MEDS ORDERED: WLLSR150 PO (22:26)
[2017-05-18] MEDS ORDERED: LPT10 PO (22:26)
[2017-05-18] MEDS ORDERED: SNQ/50 PO (22:26)
[2017-05-18] MEDS ORDERED: GABA-1219 PO (22:26)
[2017-05-18] MEDS ORDERED: ASPI81TA28 PO (22:26)
== END 2017-05-18 18:18 | disposition home or self-care (01) ==
LOC: C.EDB 14:52 → C.EDC 18:18
DX: R10.11 Right upper quadrant pain (principal); F32.9 Major depressive disorder, single episode, unspecified; E11.9 Type 2 diabetes mellitus without complications; Z83.3 Family history of diabetes mellitus; Z82.49 Family history of ischemic heart disease and other diseases of the circulatory system; F17.200 Nicotine dependence, unspecified, uncomplicated; Z79.82 Long term (current) use of aspirin

== ENCOUNTER 2017-06-25 21:45 | Inpatient (IN) | payer OTHER ==
[~2017-06-25] VITALS: Ht 154.9 cm; Wt 79.7 kg
[~2017-06-25 21:45] MED LIST changes: +ASPI81TA28 PO; +BSP15 PO; +DULA1INJ SC; -ERGO500011 PO; +GABA-1219 PO; +GLIM4TAB2 PO; +LEVO75TA5 PO; +LPT10 PO; +METF-384 PO; +ONDA4TAB10 SL; +OXYC-57 PO; +PRZ1 PO; +QUET1TAB20 PO; +RANI300T PO; +SNQ/50 PO; +WLLSR150 PO
[2017-06-25] MEDS ORDERED: ONDANSETRON INJ 2 MG/ML 2 ML VIAL IV STA (21:53)
[2017-06-25] MEDS ORDERED: SODIUM CHLORIDE 0.9% 1000ML 1,000 ML IV STA ×2 (21:53→23:17)
[2017-06-25] MEDS ORDERED: HYDROmorphone INJ 2 MG/ML SYR/VIAL IV STA (21:53)
--- NOTE | 2017-06-25 22:10 | DIAGNOSTIC IMAGING REPORT ---
SINGLE VIEW CHEST CLINICAL HISTORY: Atypical chest pain. FINDINGS: An AP, portable, upright chest radiograph is compared to study dated 10/07/2016 and correlated with chest CT dated 10/21/2016. The examination is degraded by portable technique and patient rotation. The heart is enlarged and there is mild pulmonary vascular congestion. Emphysema and chronic interstitial thickening are similar to previous. No airspace consolidation or large pleural effusion is identified. No pneumothorax is seen. The skeletal structures are osteopenic. The bony thorax is grossly intact. IMPRESSION: 1. Cardiomegaly with evidence of mild congestive failure. 2. Emphysema. 3. No airspace consolidation or large pleural effusion is identified. Electronically signed by: Daryn Barboza M.D. 06/25/2017 10:08 PM Dictated Date/Time: 06/25/2017 10:07 PM
[2017-06-25] MEDS ORDERED: SODIUM CHLORIDE 0.9% 500ML 500 ML IV STA ×2 (22:13→23:17)
[2017-06-25] MEDS ORDERED: OPTIRAY 320 IV PRN (22:15)
[2017-06-25 22:38] LABS: ISTAT CREATININE 0.7 mg/dl (0.6-1.3); ISTAT IONIZED CALCIUM 1.13 mmol/l (1.12-1.32); ISTAT POTASSIUM 4.1 mEq/L (3.3-5.0)
[2017-06-25 22:41] LABS: BASO % 0.3 %; BASO ABS # 0.06 K/uL (0-0.2); EOS % 1.3 %; EOS ABS # 0.31 K/uL (0-0.5); HEMATOCRIT 42.4 % (37-47); HEMOGLOBIN 14.8 g/dL (12.0-16.0); IG# 0.12 K/uL (0.00-0.02); LYMPH % 18.5 %; MEAN CELL VOLUME 88.1 fL (80-100); MEAN CORPUSCULAR HEMOGLOBIN 30.8 pg (25-34); MEAN CORPUSCULAR HGB CONC 34.9 g/dl (32-36); MEAN PLATELET VOLUME 10.8 fL (7.4-10.4); MONO % 7.3 %; NEUT % 72.1 %; NEUT ABS # 16.75 K/uL (1.4-6.5); PLATELET COUNT 327 K/uL (130-400); RED CELL DISTRIBUTION WIDTH SD 41.9 fL (36.4-46.3); WHITE BLOOD COUNT 23.24 K/uL (4.8-10.8)
--- NOTE | 2017-06-25 23:01 | DIAGNOSTIC IMAGING REPORT ---
CT SCAN OF THE ABDOMEN AND PELVIS WITH IV CONTRAST CLINICAL HISTORY: Left upper quadrant abdominal pain. COMPARISON STUDY: Abdominal CT dated 05/18/2017. Chest CT dated 10/16/2011. TECHNIQUE: Following the IV administration of 93 cc of Optiray 320, CT scan of the abdomen and pelvis is performed from the lung bases to the proximal femora. Images are reviewed in the axial, sagittal, and coronal planes. IV contrast was administered without complication. A dose lowering technique was utilized adhering to the principles of ALARA. CT DOSE: 599.68 mGy.cm FINDINGS: Lung bases: The heart is normal in size and without pericardial effusion. A 4 mm left lower lobe pulmonary nodule seen image #30 is unchanged dating back to 2011 and of doubtful significance. The lung bases are otherwise clear. Liver: The contrast-enhanced liver is enlarged, measuring 19.6 cm in length. The liver demonstrates diffusely diminished attenuation consistent with hepatic steatosis. There is no intrahepatic biliary ductal dilatation. The hepatic veins and portal veins are patent. Gallbladder: Focal adenomyomatosis is again suggested in the gallbladder fundus. The gallbladder is otherwise normal in appearance. Spleen: Normal in size and attenuation. Pancreas: Unremarkable. Adrenal glands: Unremarkable. Kidneys: The contrast enhanced kidneys are normal in size and without hydronephrosis. The kidneys enhance symmetrically. Abdominal vasculature: The abdominal aorta is normal in course and caliber noting scattered foci of atherosclerotic calcification. Bowel: The small bowel and colon are normal in course and caliber. The appendix is well-visualized and normal. Peritoneum: There is no intraperitoneal free air or abdominal ascites. Lymphadenopathy: None. Pelvic viscera: The bladder is normal as visualized. The uterus is surgically absent. No adnexal lesion is seen. Skeletal structures: The skeletal structures are osteopenic. No lytic or blastic lesions are seen. IMPRESSION: 1. There are no acute infectious or inflammatory findings in the abdomen or pelvis. 2. Hepatomegaly and hepatic steatosis. Electronically signed by: Daryn Barboza M.D. 06/25/2017 11:00 PM Dictated Date/Time: 06/25/2017 10:54 PM
[2017-06-25 23:02] LABS: ALT/SGPT 28 U/L (12-78); BLOOD UREA NITROGEN 13 mg/dl (7-18); CALCIUM 9.1 mg/dl (8.5-10.1); CARBON DIOXIDE 23 mmol/L (21-32); CREATININE 0.87 mg/dl (0.60-1.20); GLUCOSE 176 mg/dl (70-99); LIPASE 779 U/L (73-393); SODIUM 137 mmol/L (136-145)
[2017-06-25 23:07] LABS: ALKALINE PHOSPHATASE 109 U/L (45-117); AST/SGOT 15 U/L (15-37); TOTAL PROTEIN 7.6 gm/dl (6.4-8.2)
[2017-06-25] MEDS ORDERED: HYDROmorphone INJ 0.5 MG/0.5 ML SYR IV STA (23:09)
--- NOTE | 2017-06-25 23:45 | EMERGENCY ROOM VISIT NOTE ---
History First contact with patient: 21:50 Chief Complaint: ABDOMINAL PAIN Stated Complaint: PAIN IN LEFT SIDE OF BELLY, NAUSEA History of Present Illness The patient is a 57 year old female who presents to the Emergency Room with complaints of severe epigastric left upper quadrant pain for the past few hours described as discomfort, ranging in severity 10 out of 10. Nothing makes it better or worse. Patient with some nausea. She has had pancreatitis before this feels somewhat similar. No prior heart disease. Patient does smoke and has diabetes and cholesterol. No history of blood clots. She has had prior abdominal surgeries. She still has her gallbladder. Patient denies chest pain , dyspnea, fever, chills, cough, congestion, vomiting, diarrhea, urinary symptoms. No injury to the area. No rashes. Patient continues to smoke. Review of Systems An 10 system review of systems was completed with positives and pertinent negatives listed in the HPI. Past Medical/Surgical History Medical Problems: (1) Back spasm (2) Depression (3) Diabetes (4) Heroin addiction (5) Precordial chest pain (6) Pseudogout of knee Surgical Problems: (1) H/O: hysterectomy (2) Previous section Family History Diabetes mellitus Hypertension Lung disease Social History Smoking Status: Current Every Day Smoker Alcohol Use: none Drug Use: other Marital Status: in relationship Housing Status: lives with significant other Occupation Status: unemployed Current/Historical Medications Scheduled Aspirin (Aspirin Ec), 81 MG PO DAILY Atorvastatin (Lipitor), 10 MG PO DAILY Bupropion HCl (Bupropion HCl Sr), 150 MG PO BID Buspirone HCl (Buspirone HCl), 15 MG PO BID Doxepin Hcl (Sinequan), 50 MG PO HS Dulaglutide (Trulicity), 0.75 MG SC WK Gabapentin (Gabapentin), 300 MG PO HS Glimepiride (Glimepiride), 4 MG PO QAM Levothyroxine Sodium (Levothyroxine Sodium), 75 MCG PO DAILY Metformin Hcl (Glucophage), 1,000 MG PO BID Prazosin HCl (Prazosin HCl), 2 MG PO HS Quetiapine Fumarate (Quetiapine Fumarate), 400 MG PO HS Ranitidine Hcl (Zantac), 300 MG PO QAM Physical Exam Vital Signs Date Time Temp Pulse Resp B/P (MAP) Pulse Ox O2 Delivery O2 Flow Rate FiO2 06/25/17 23:26 94 20 118/79 94 Room Air 06/25/17 22:28 Room Air 06/25/17 21:48 37.0 108 20 176/77 97 Room Air Physical Exam VITALS: Vitals are noted on the nurse's note and reviewed by myself. Vital signs hypertensive. GENERAL: White female with tobacco odor who appears anxious and in pain, in no acute distress, nondiaphoretic, well-developed well-nourished. SKIN: The skin was without rashes, erythema, edema, or bruising. There is no tenting of the skin. Capillary reflex less than 2 seconds. HEAD: Normocephalic atraumatic. EARS: External auditory canals clear, tympanic membranes pearly del rosario without erythema or effusion bilaterally. EYES: Pupils equal round and reactive to light and accommodation. Conjunctivae without injection, sclerae without icterus. Extraocular movements intact. NOSE: Patent, turbinates without inflammation or discharge. MOUTH: Mucous membranes moist. Pharynx without erythema or exudate. Uvula midline. Airway patent. Tongue does not deviate. NECK: Supple without nuchal rigidity. No lymphadenopathy. No thyromegaly. Cervical spine is nontender. No JVD. HEART: Regular rate and rhythm LUNGS: Clear to auscultation bilaterally without wheezes, rales or rhonchi. No retractions or accessory muscle use. ABDOMEN: Positive bowel sounds x 4. Normal tympanic percussion. Soft, tender to palpation epigastric left upper quadrant area, without masses or organomegaly. Tripp sign negative. No guarding or rebound tenderness. No CVA tenderness MUSCULOSKELETAL: No muscle atrophy, erythema, or edema noted. NEURO: Patient was alert and oriented to person place and time. Normal sensation to light and sharp touch. No focal neurological deficits. Medical Decision & Procedures Laboratory Results 06/25/17 22:15 Red Blood Count 4.81, Mean Corpuscular Volume 88.1, Mean Corpuscular Hemoglobin 30.8, Mean Corpuscular Hemoglobin Concent 34.9, Mean Platelet Volume 10.8, Neutrophils (%) (Auto) 72.1, Lymphocytes (%) (Auto) 18.5, Monocytes (%) (Auto) 7.3, Eosinophils (%) (Auto) 1.3, Basophils (%) (Auto) 0.3, Neutrophils # (Auto) 16.75, Lymphocytes # (Auto) 4.30, Monocytes # (Auto) 1.70, Eosinophils # (Auto) 0.31, Basophils # (Auto) 0.06 06/25/17 22:15 Test 06/25/17 22:00 06/25/17 22:15 06/25/17 22:18 06/25/17 22:21 Urine Color YELLOW Urine Appearance CLEAR (CLEAR) Urine pH 5.0 (4.5-7.5) Urine Specific Siler 1.021 (1.000-1.030) Urine Protein NEG (NEG) Urine Glucose (UA) NEG (NEG) Urine Ketones NEG (NEG) Urine Occult Blood NEG (NEG) Urine Nitrite NEG (NEG) Urine Bilirubin NEG (NEG) Urine Urobilinogen NEG (NEG) Urine Leukocyte Esterase TRACE (NEG) Urine WBC (Auto) 1-5 /hpf (0-5) Urine RBC (Auto) 0-4 /hpf (0-4) Urine Hyaline Casts (Auto) 1-5 /lpf (0-5) Urine Epithelial Cells (Auto) >30 /lpf (0-5) Urine Bacteria (Auto) NEG (NEG) White Blood Count 23.24 K/uL (4.8-10.8) Red Blood Count 4.81 M/uL (4.2-5.4) Hemoglobin 14.8 g/dL (12.0-16.0) Hematocrit 42.4 % (37-47) Mean Corpuscular Volume 88.1 fL (80-100) Mean Corpuscular Hemoglobin 30.8 pg (25-34) Mean Corpuscular Hemoglobin Concent 34.9 g/dl (32-36) Platelet Count 327 K/uL (130-400) Mean Platelet Volume 10.8 fL (7.4-10.4) Neutrophils (%) (Auto) 72.1 % Lymphocytes (%) (Auto) 18.5 % Monocytes (%) (Auto) 7.3 % Eosinophils (%) (Auto) 1.3 % Basophils (%) (Auto) 0.3 % Neutrophils # (Auto) 16.75 K/uL (1.4-6.5) Lymphocytes # (Auto) 4.30 K/uL (1.2-3.4) Monocytes # (Auto) 1.70 K/uL (0.11-0.59) Eosinophils # (Auto) 0.31 K/uL (0-0.5) Basophils # (Auto) 0.06 K/uL (0-0.2) RDW Standard Deviation 41.9 fL (36.4-46.3) RDW Coefficient of Variation 13.0 % (11.5-14.5) Immature Granulocyte % (Auto) 0.5 % Immature Granulocyte # (Auto) 0.12 K/uL (0.00-0.02) Est Creatinine Clear Calc Drug Dose 66.2 ml/min Estimated GFR () 84.5 Estimated GFR (Non- 72.9 BUN/Creatinine Ratio 14.6 (10-20) Calcium Level 9.1 mg/dl (8.5-10.1) Total Bilirubin 0.3 mg/dl (0.2-1) Direct Bilirubin 0.1 mg/dl (0-0.2) Aspartate Amino Transf (AST/SGOT) 15 U/L (15-37) Alanine Aminotransferase (ALT/SGPT) 28 U/L (12-78) Alkaline Phosphatase 109 U/L (45-117) Troponin I < 0.015 ng/ml (0-0.045) Total Protein 7.6 gm/dl (6.4-8.2) Albumin 4.0 gm/dl (3.4-5.0) Lipase 779 U/L (73-393) Bedside Troponin I < 0.030 ng/ml (0-0.045) Bedside Lactic Acid Venous 2.25 mmol/L (0.90-1.70) Test 06/25/17 22:24 Bedside Hemoglobin 14.6 g/dl (12.0-16.0) Bedside Hematocrit 43 % (37-47) Bedside Sodium 141 mEq/L (135-144) Bedside Potassium 4.1 mEq/L (3.3-5.0) Bedside Chloride 105 mEq/L (101-112) Bedside Total CO2 21 mEq/l (24-31) Anion Gap 20.0 mmol/L (16-25) Bedside Blood Urea Nitrogen 13 mg/dl (7-18) Bedside Creatinine 0.7 mg/dl (0.6-1.3) Bedside Glucose (other) 184 mg/dl (70-99) Bedside Ionized Calcium (Ana Cristina) 1.13 mmol/l (1.12-1.32) Medications Administered Medications (Trade) Dose Ordered Sig/Isak Route Start Time Stop Time Status Last Admin Dose Admin Hydromorphone HCl (Dilaudid Inj) 1 mg ONE STAT IV 06/25/17 21:53 06/25/17 21:56 DC 06/25/17 22:35 1 MG Ondansetron HCl (Zofran Inj) 4 mg NOW STAT IV 06/25/17 21:53 06/25/17 21:56 DC 06/25/17 22:34 4 MG Sodium Chloride 500 ml @ 999 mls/hr Q31M STAT IV 06/25/17 22:13 06/25/17 22:43 DC 06/25/17 22:36 999 MLS/HR Hydromorphone HCl (Dilaudid Inj) 0.5 mg NOW STAT IV 06/25/17 23:09 06/25/17 23:10 DC 06/25/17 23:22 0.5 MG Sodium Chloride 500 ml @ 999 mls/hr Q31M STAT IV 06/25/17 23:17 06/25/17 23:47 06/25/17 23:25 999 MLS/HR ED Course Prior records/ancillary studies reviewed. Triage Nursing notes reviewed. The patient's history was concerning for abdominal pain. Differential diagnosis: Etiologies such as appendicitis, diverticulitis, PUD, biliary pathology, UTI, pancreatitis, obstruction, mesenteric ischemia, aortic pathology, infections, inflammatory bowel disease, renal colic, as well as others were entertained. Physical examination findings: As above. ER treatment provided: Dilaudid, Zofran, IV fluids On reassessment the patient felt better. Diagnostics interpreted by me: ECG: Normal sinus, normal intervals, no acute ST-T wave changes. Impression normal sinus rhythm interpreted by myself. The labs revealed elevated lipase Leukocytosis. Lactic acid 2.25. Imaging studies: CT SCAN OF THE ABDOMEN AND PELVIS WITH IV CONTRAST CLINICAL HISTORY: Left upper quadrant abdominal pain. COMPARISON STUDY: Abdominal CT dated 05/18/2017. Chest CT dated 10/16/2011. TECHNIQUE: Following the IV administration of 93 cc of Optiray 320, CT scan of the abdomen and pelvis is performed from the lung bases to the proximal femora. Images are reviewed in the axial, sagittal, and coronal planes. IV contrast was administered without complication. A dose lowering technique was utilized adhering to the principles of ALARA. CT DOSE: 599.68 mGy.cm FINDINGS: Lung bases: The heart is normal in size and without pericardial effusion. A 4 mm left lower lobe pulmonary nodule seen image #30 is unchanged dating back to 2011 and of doubtful significance. The lung bases are otherwise clear. Liver: The contrast-enhanced liver is enlarged, measuring 19.6 cm in length. The liver demonstrates diffusely diminished attenuation consistent with hepatic steatosis. There is no intrahepatic biliary ductal dilatation. The hepatic veins and portal veins are patent. Gallbladder: Focal adenomyomatosis is again suggested in the gallbladder fundus. The gallbladder is otherwise normal in appearance. Spleen: Normal in size and attenuation. Pancreas: Unremarkable. Adrenal glands: Unremarkable. Kidneys: The contrast enhanced kidneys are normal in size and without hydronephrosis. The kidneys enhance symmetrically. Abdominal vasculature: The abdominal aorta is normal in course and caliber noting scattered foci of atherosclerotic calcification. Bowel: The small bowel and colon are normal in course and caliber. The appendix is well-visualized and normal. Peritoneum: There is no intraperitoneal free air or abdominal ascites. Lymphadenopathy: None. Pelvic viscera: The bladder is normal as visualized. The uterus is surgically absent. No adnexal lesion is seen. Skeletal structures: The skeletal structures are osteopenic. No lytic or blastic lesions are seen. IMPRESSION: 1. There are no acute infectious or inflammatory findings in the abdomen or pelvis. 2. Hepatomegaly and hepatic steatosis. Electronically signed by: Daryn Barboza M.D. SINGLE VIEW CHEST CLINICAL HISTORY: Atypical chest pain. FINDINGS: An AP, portable, upright chest radiograph is compared to study dated 10/07/2016 and correlated with chest CT dated 10/21/2016. The examination is degraded by portable technique and patient rotation. The heart is enlarged and there is mild pulmonary vascular congestion. Emphysema and chronic interstitial thickening are similar to previous. No airspace consolidation or large pleural effusion is identified. No pneumothorax is seen. The skeletal structures are osteopenic. The bony thorax is grossly intact. IMPRESSION: 1. Cardiomegaly with evidence of mild congestive failure. 2. Emphysema. 3. No airspace consolidation or large pleural effusion is identified. Electronically signed by: Daryn Barboza M.D. Consultation: A consultation was placed with the []. The case was discussed and diagnostics were reviewed. The patient was evaluated in the ER for further treatment. HEART SCORE: Hx: high/mod/low suspicion: 0 ECG: ST depression/nonspecific changes/normal: 0 Age: Greater than 65/45-64/less than 45: 1 Risk factors: (Hypertension, hyperlipidemia, diabetes, coronary disease, tobacco use, cocaine use): 3 Troponin: Greater than 2 times normal limits/1-2 times normal limits/normal: 0 Total: 4 Exam and history seem consistent with pancreatitis. Patient had elevated lipase and leukocytosis. CT showed no acute findings. Lactate was slightly elevated. Patient was hydrated as above. She is medicated as above.. Patient was neurovascularly and neurologically intact. EMR was reviewed. Patient agrees to treatment plan of admission. Patient has had pancreatitis before.By the evaluation outlined above emergent etiologies such as appendicitis, diverticulitis, PUD, biliary pathology, UTI, obstruction, mesenteric ischemia , aortic pathology, inflammatory bowel disease, renal colic, as well as others were deemed relatively unlikely. The pt informed about the findings as listed above. All questions were answered and pleased with the treatment. Case reviewed with my attending The chart was completed utilizing [employer] Speech voice recognition software. Grammatical errors, random word insertions, pronoun errors, and incomplete sentences are an occassional consequence of this system due to software limitations, ambient noise, and hardware issues. Any formal questions or concerns about the content, text, or information contained within the body of this dictation should be directly addressed to the physician assistant track coach for clarification. Medical Decision as above Medication Reconcilliation Current Medication List: was personally reviewed by me Blood Pressure Screening Patient's blood pressure: Elevated blood pressure Blood pressure disposition: Elevated BP felt to be situational Impression Primary Impression: Pancreatitis Departure Information Dispostion Being Evaluated By Hospitalist Condition FAIR Referrals Geneva Loving M.D. (PCP) Patient Instructions My [facility] Problem Qualifiers Primary Impression: Pancreatitis Chronicity: acute Pancreatitis type: unspecified pancreatitis type Acute pancreatitis complication: unspecified Qualified Codes: K85.90 - Acute pancreatitis without necrosis or infection, unspecified
[2017-06-26] VITALS (7 sets, daily range): BP systolic 100–144; BP diastolic 60–84; PULSE 74–94; TEMP 36.4–36.9; O2SAT 92–97; Ht 154.9 cm; Wt 79.7 kg
[2017-06-26] MEDS ORDERED: ONDANSETRON INJ 2 MG/ML 2 ML VIAL IV PRN
[2017-06-26] MEDS ORDERED: GLUCAGON FOR INJ 1 MG VIAL SQ PRN
[2017-06-26] MEDS ORDERED: GLUCOSE 10 TABS/TUBE PO PRN
[2017-06-26] MEDS ORDERED: GLUCOSE 40% GEL 15 GM TUBE PO PRN
[2017-06-26] MEDS ORDERED: DC ALL PREVIOUSLY ORDERED DIABETES MEDS ONE
[2017-06-26] MEDS ORDERED: DEXTROSE 50% 50 ML SYR IV PRN
--- NOTE | 2017-06-26 00:27 | History and Physical ---
History & Physical Date & Time of Service: Jun 26, 2017 at 00:04 Chief Complaint: Pain In Left Side Of Belly, Nausea Primary Care Physician: Geneva Loving M.D. History of Present Illness Source: patient Patient is a 57yo C female with history of DM or oral agents, Hyperlipidemia, Hypothyroidism, Depression/Anxiety and prior episode of pancreatitis last year presenting with LUQ and mid-epigastric abdominal pain that started this evening around 1800. Patient states that the pain is severe, 10/10, gripping pain that radiates through to the back and up to the left shoulder. She has some associated nausea but no vomiting. No diarrhea or constipation. No urinary complaints. Patient states that the pain is similar in nature to her prior episode of pancreatitis. No additional complaints today. ER Course: NSS x 1500mL, Dilaudid x 1mg, 0.5mg IV, Zofran 4mg IV Past Medical/Surgical History Medical Problems: 1. Diabetes 2. Hyperlipidemia 3. Hypothyroidism 4. Pancreatitis 5. OCD 6. Depression 7. Anxiety 8. PTSD 9. Biliary colic Surgical Problems: (1) H/O: hysterectomy (2) Previous section (3) Hernia repair Family History Diabetes mellitus Hypertension Lung disease Social History Smoking Status: Current Every Day Smoker Smokeless Tobacco Use: No Alcohol Use: none Drug Use: none, other Marital Status: in relationship Housing status: lives with significant other Occupational Status: unemployed Allergies Coded Allergies: Canagliflozin (Verified Allergy, Severe, NAUSEA, VAGIN AL IRRITATION, SOB , 05/18/17) Levofloxacin (Verified Allergy, Intermediate, HIVES, 05/18/17) Home Medications Scheduled Aspirin (Aspirin Ec), 81 MG PO DAILY Atorvastatin (Lipitor), 10 MG PO DAILY Bupropion HCl (Bupropion HCl Sr), 150 MG PO BID Buspirone HCl (Buspirone HCl), 15 MG PO BID Doxepin Hcl (Sinequan), 50 MG PO HS Dulaglutide (Trulicity), 0.75 MG SC WK Gabapentin (Gabapentin), 300 MG PO HS Glimepiride (Glimepiride), 4 MG PO QAM Levothyroxine Sodium (Levothyroxine Sodium), 75 MCG PO DAILY Metformin Hcl (Glucophage), 1,000 MG PO BID Prazosin HCl (Prazosin HCl), 2 MG PO HS Quetiapine Fumarate (Quetiapine Fumarate), 400 MG PO HS Ranitidine Hcl (Zantac), 300 MG PO QAM Review of Systems Constitutional: No fever, No chills, No weight loss Eyes: No worsening of vision, No redness ENT: No sore throat, No trouble swallowing Respiratory: No cough, No sputum, No shortness of breath, No dyspnea on exertion Cardiovascular: No chest pain, No palpitations Abdomen: + pain, + nausea, No vomiting, No diarrhea, No constipation, No GI bleeding Genitourinary - Female: No dysuria, No urinary frequency, No urinary urgency Physical Exam Vital Signs Date Time Temp Pulse Resp B/P (MAP) Pulse Ox O2 Delivery O2 Flow Rate FiO2 06/25/17 23:26 94 20 118/79 94 Room Air 06/25/17 22:28 Room Air 06/25/17 21:48 37.0 108 20 176/77 97 Room Air General Appearance: WD/WN, no apparent distress Head: normocephalic, atraumatic Eyes: normal inspection, PERRL, EOMI, sclerae normal ENT: normal ENT inspection, hearing grossly normal, pharynx normal Neck: supple, no adenopathy, no JVD, trachea midline Respiratory/Chest: chest non-tender, lungs clear, normal breath sounds, no respiratory distress, no accessory muscle use Cardiovascular: regular rate, rhythm, no edema, no murmur, normal peripheral pulses Abdomen/GI: normal bowel sounds (abdomen flat, normoactive bowel sounds, soft, tenderness in midepigastric region and LUQ with volunary guarding, no rebound tenderness, no ascites, no rash) Back: normal inspection Extremities/Musculoskelatal: normal inspection, no calf tenderness, no pedal edema Neurologic/Psych: alert, normal mood/affect, oriented x 3 Skin: normal color, warm/dry, no rash Lymphatic: no adenopathy Diagnostics Laboratory Results Results Past 24 Hours Test 06/25/17 22:00 06/25/17 22:15 06/25/17 22:18 06/25/17 22:21 Range/Units Urine Color YELLOW Urine Appearance CLEAR CLEAR Urine pH 5.0 4.5-7.5 Urine Specific [place] 1.021 1.000-1.030 Urine Protein NEG NEG Urine Glucose (UA) NEG NEG Urine Ketones NEG NEG Urine Occult Blood NEG NEG Urine Nitrite NEG NEG Urine Bilirubin NEG NEG Urine Urobilinogen NEG NEG Urine Leukocyte Esterase TRACE NEG Urine WBC (Auto) 1-5 0-5 /hpf Urine RBC (Auto) 0-4 0-4 /hpf Urine Hyaline Casts (Auto) 1-5 0-5 /lpf Urine Epithelial Cells (Auto) >30 0-5 /lpf Urine Bacteria (Auto) NEG NEG White Blood Count 23.24 4.8-10.8 K/uL Red Blood Count 4.81 4.2-5.4 M/uL Hemoglobin 14.8 12.0-16.0 g/dL Hematocrit 42.4 37-47 % Mean Corpuscular Volume 88.1 80-100 fL Mean Corpuscular Hemoglobin 30.8 25-34 pg Mean Corpuscular Hemoglobin Concent 34.9 32-36 g/dl Platelet Count 327 130-400 K/uL Mean Platelet Volume 10.8 7.4-10.4 fL Neutrophils (%) (Auto) 72.1 % Lymphocytes (%) (Auto) 18.5 % Monocytes (%) (Auto) 7.3 % Eosinophils (%) (Auto) 1.3 % Basophils (%) (Auto) 0.3 % Neutrophils # (Auto) 16.75 1.4-6.5 K/uL Lymphocytes # (Auto) 4.30 1.2-3.4 K/uL Monocytes # (Auto) 1.70 0.11-0.59 K/uL Eosinophils # (Auto) 0.31 0-0.5 K/uL Basophils # (Auto) 0.06 0-0.2 K/uL RDW Standard Deviation 41.9 36.4-46.3 fL RDW Coefficient of Variation 13.0 11.5-14.5 % Immature Granulocyte % (Auto) 0.5 % Immature Granulocyte # (Auto) 0.12 0.00-0.02 K/uL Sodium Level 137 136-145 mmol/L Potassium Level 4.0 3.5-5.1 mmol/L Chloride Level 106 98-107 mmol/L Carbon Dioxide Level 23 21-32 mmol/L Anion Gap 8.0 3-11 mmol/L Blood Urea Nitrogen 13 7-18 mg/dl Creatinine 0.87 0.60-1.20 mg/dl Est Creatinine Clear Calc Drug Dose 66.2 ml/min Estimated GFR () 84.5 Estimated GFR (Non- 72.9 BUN/Creatinine Ratio 14.6 10-20 Random Glucose 176 70-99 mg/dl Calcium Level 9.1 8.5-10.1 mg/dl Total Bilirubin 0.3 0.2-1 mg/dl Direct Bilirubin 0.1 0-0.2 mg/dl Aspartate Amino Transf (AST/SGOT) 15 15-37 U/L Alanine Aminotransferase (ALT/SGPT) 28 12-78 U/L Alkaline Phosphatase 109 45-117 U/L Troponin I < 0.015 0-0.045 ng/ml Total Protein 7.6 6.4-8.2 gm/dl Albumin 4.0 3.4-5.0 gm/dl Lipase 779 73-393 U/L Bedside Troponin I < 0.030 0-0.045 ng/ml Bedside Lactic Acid Venous 2.25 0.90-1.70 mmol/L Test 06/25/17 22:24 Range/Units Bedside Hemoglobin 14.6 12.0-16.0 g/dl Bedside Hematocrit 43 37-47 % Bedside Sodium 141 135-144 mEq/L Bedside Potassium 4.1 3.3-5.0 mEq/L Bedside Chloride 105 101-112 mEq/L Bedside Total CO2 21 24-31 mEq/l Anion Gap 20.0 16-25 mmol/L Bedside Blood Urea Nitrogen 13 7-18 mg/dl Bedside Creatinine 0.7 0.6-1.3 mg/dl Bedside Glucose (other) 184 70-99 mg/dl Bedside Ionized Calcium (Ana Cristina) 1.13 1.12-1.32 mmol/l Diagnostic Radiology CT SCAN OF THE ABDOMEN AND PELVIS WITH IV CONTRAST CLINICAL HISTORY: Left upper quadrant abdominal pain. COMPARISON STUDY: Abdominal CT dated 05/18/2017. Chest CT dated 10/16/2011. TECHNIQUE: Following the IV administration of 93 cc of Optiray 320, CT scan of the abdomen and pelvis is performed from the lung bases to the proximal femora. Images are reviewed in the axial, sagittal, and coronal planes. IV contrast was administered without complication. A dose lowering technique was utilized adhering to the principles of ALARA. CT DOSE: 599.68 mGy.cm FINDINGS: Lung bases: The heart is normal in size and without pericardial effusion. A 4 mm left lower lobe pulmonary nodule seen image #30 is unchanged dating back to 2011 and of doubtful significance. The lung bases are otherwise clear. Liver: The contrast-enhanced liver is enlarged, measuring 19.6 cm in length. The liver demonstrates diffusely diminished attenuation consistent with hepatic steatosis. There is no intrahepatic biliary ductal dilatation. The hepatic veins and portal veins are patent. Gallbladder: Focal adenomyomatosis is again suggested in the gallbladder fundus. The gallbladder is otherwise normal in appearance. Spleen: Normal in size and attenuation. Pancreas: Unremarkable. Adrenal glands: Unremarkable. Kidneys: The contrast enhanced kidneys are normal in size and without hydronephrosis. The kidneys enhance symmetrically. Abdominal vasculature: The abdominal aorta is normal in course and caliber noting scattered foci of atherosclerotic calcification. Bowel: The small bowel and colon are normal in course and caliber. The appendix is well-visualized and normal. Peritoneum: There is no intraperitoneal free air or abdominal ascites. Lymphadenopathy: None. Pelvic viscera: The bladder is normal as visualized. The uterus is surgically absent. No adnexal lesion is seen. Skeletal structures: The skeletal structures are osteopenic. No lytic or blastic lesions are seen. IMPRESSION: 1. There are no acute infectious or inflammatory findings in the abdomen or pelvis. 2. Hepatomegaly and hepatic steatosis. SINGLE VIEW CHEST CLINICAL HISTORY: Atypical chest pain. FINDINGS: An AP, portable, upright chest radiograph is compared to study dated 10/07/2016 and correlated with chest CT dated 10/21/2016. The examination is degraded by portable technique and patient rotation. The heart is enlarged and there is mild pulmonary vascular congestion. Emphysema and chronic interstitial thickening are similar to previous. No airspace consolidation or large pleural effusion is identified. No pneumothorax is seen. The skeletal structures are osteopenic. The bony thorax is grossly intact. IMPRESSION: 1. Cardiomegaly with evidence of mild congestive failure. 2. Emphysema. 3. No airspace consolidation or large pleural effusion is identified. Impression Assessment and Plan 57yo C female with multiple medical problems presenting with LUQ and epigastric discomfort, nausea, elevated lipase at 779 concerning for acute pancreatitis. Patient has a history of the same with unclear etiology. 1. Suspected pancreatitis - patient with history of the same. Elevated lipase at 779. Calcium level normal. CT negative at this time. Patient takes Trulicity which has side effect of pancreatitis as well as Seroquel. -Check lipids x 1 -NPO except medications -IV hydration with NSS a 100mL/hr x 2 liters -Pain control with Dilaudid 0.5mg IV q 2 hours PRN -Nausea control with Zofran 4mg IV q 6 hours PRN -Repeat lactate with AM labs to document trend 2. Diabetes - blood sugar mildly elevated at 176. Patient on oral medications as an outpatient and reports adequate control -Hold PO medications -Lantus 10units SQ BID, Novolog sliding scale -Continue to monitor 3. Hyperlipidemia - Stable -Check lipids as above -Continue Atorvastatin 10mg po qHS 4. Hypothyroidism - Stable -Continue home Synthroid 75mcg po daily 5. OCD/Depression/Anxiety -Continue home psychotropic agents - Bupropion 150mg po BID, Buspirone 15mg po BID, Seroquel 400mg po HS, Prazosin 2mg HS and Doxepin 50mg HS 6. F/E/N - NSS at 100mL/hr x 2 liters, monitor electrolytes and replete as needed, NPO except meds 7. Ppx - Lovenox for DVT prophylaxis 8. Code - Full 9. Dispo - Admit to medical floor for pancreatitis Resuscitation Status VTE Prophylaxis Will order VTE Prophylaxis: Yes
[2017-06-26] MEDS: SODIUM CHLORIDE 0.9% 1000ML 1,000 ML IV SCH ×2 (02:37→09:15)
[2017-06-26] MEDS: INSULIN ASPART 100 UNITS/ML 3 ML PEN SC SCH ×5 (02:38→21:00)
[2017-06-26] MEDS: HYDROmorphone INJ 0.5 MG/0.5 ML SYR IV PRN ×3 (02:40→15:38)
[2017-06-26] MEDS: DOXEPIN HCL 50 MG CAP PO SCH ×2 (03:03→20:59)
[2017-06-26] MEDS: PRAZOSIN HCL 1 MG CAP PO SCH ×2 (03:03→21:00)
[2017-06-26] MEDS: QUETIAPINE FUMARATE 200 MG TAB PO SCH ×2 (03:04→20:59)
[2017-06-26] MEDS: ATORVASTATIN 10 MG TAB PO SCH ×2 (03:04→20:59)
[2017-06-26] MEDS: INSULIN GLARGINE SOLOSTAR 100 UNITS/ML 3 ML PEN SC SCH ×3 (03:06→21:01)
[2017-06-26] MEDS: LEVOTHYROXINE 75 MCG TAB PO SCH (06:05)
--- NOTE | 2017-06-26 07:32 | Family Medicine Progress Note ---
Progress Note Date of Service Jun 26, 2017. Subjective Pt evaluation today including: conversation w/ patient, physical exam, chart review, lab review Pain: Minimal Patient reports she is feeling significantly better today Notes that her previous history of pancreatitis was more epigastric; her pain yesterday was more LUQ Currently denies any nausea. No fevers. No nursing concerns overnight Additional Comments: A 10 point review of systems was negative unless stated above. Medications Current Inpatient Medications Medications (Trade) Dose Ordered Sig/Isak Route Start Time Stop Time Status Last Admin Dose Admin Ioversol (Optiray 320) 100 ml UD PRN IV 06/25/17 22:15 06/29/17 22:14 Aspirin (Ecotrin Tab) 81 mg DAILY PO 06/26/17 09:00 07/26/17 08:59 06/26/17 07:42 81 MG Atorvastatin Calcium (Lipitor Tab) 10 mg HS PO 06/26/17 21:00 07/26/17 20:59 06/26/17 03:04 10 MG Bupropion HCl (Wellbutrin-Sr Tab) 150 mg BID PO 06/26/17 09:00 07/26/17 08:59 06/26/17 07:42 150 MG Buspirone HCl (BusPAR TAB) 15 mg BID PO 06/26/17 09:00 07/26/17 08:59 06/26/17 07:42 15 MG Doxepin HCl (Sinequan Cap) 50 mg HS PO 06/26/17 21:00 07/26/17 20:59 06/26/17 03:03 50 MG Levothyroxine Sodium (Synthroid Tab) 75 mcg DAILYBB PO 06/26/17 06:30 07/26/17 06:29 06/26/17 06:05 75 MCG Prazosin HCl (Prazosin) 2 mg HS PO 06/26/17 21:00 07/26/17 20:59 06/26/17 03:03 2 MG Quetiapine Fumarate (seroQUEL TAB) 400 mg HS PO 06/26/17 21:00 07/26/17 20:59 06/26/17 03:04 400 MG Ranitidine HCl (zANTac TAB) 300 mg QAM PO 06/26/17 09:00 07/26/17 08:59 06/26/17 07:42 300 MG Ondansetron HCl (Zofran Inj) 4 mg Q6H PRN IV 06/26/17 00:00 07/26/17 00:00 Hydromorphone HCl (Dilaudid Inj) 0.5 mg Q2HWA PRN IV 06/26/17 00:00 07/10/17 00:00 06/26/17 11:10 0.5 MG Insulin Glargine (Lantus Solostar Pen) 10 units Q12 SC 06/26/17 02:00 07/26/17 01:59 06/26/17 07:44 10 UNITS Glucose (Glucose 40% Gel) 15-30 GRAMS 15 GRAMS... UD PRN PO 06/26/17 00:00 07/26/17 00:00 Glucose (Glucose Chew Tab) 4-8 Tablets 4 Tabl... UD PRN PO 06/26/17 00:00 07/26/17 00:00 Dextrose (Dextrose 50% 50ML Syringe) 25-50ML OF 50% DW IV FOR... UD PRN IV 06/26/17 00:00 07/26/17 00:00 Glucagon (Glucagon Inj) 1 mg UD PRN SQ 06/26/17 00:00 07/26/17 00:00 Enoxaparin Sodium (Lovenox Inj) 40 mg DAILY SQ 06/26/17 09:00 07/26/17 08:59 06/26/17 09:14 40 MG Insulin Aspart (novoLOG ASPART) SLIDING SCALE If C... ACHS SC 06/26/17 11:00 07/26/17 10:59 06/26/17 12:05 4 UNITS Objective Vital Signs Date Time Temp Pulse Resp B/P (MAP) Pulse Ox O2 Delivery O2 Flow Rate FiO2 06/26/17 11:26 36.4 75 16 134/81 (98) 97 Room Air 06/26/17 08:00 Room Air 06/26/17 06:58 36.8 94 20 100/60 (73) 92 Room Air 06/26/17 04:39 36.7 89 20 133/75 (94) 96 Room Air 06/26/17 01:20 36.9 90 20 133/72 95 Room Air 06/26/17 01:02 88 22 147/84 97 Room Air 06/25/17 23:26 94 20 118/79 94 Room Air 06/25/17 22:28 Room Air 06/25/17 21:48 37.0 108 20 176/77 97 Room Air Physical Exam General Appearance: WD/WN, no apparent distress Eyes: normal inspection, EOMI ENT: normal ENT inspection, hearing grossly normal, pharynx normal Neck: supple, no adenopathy, no JVD Respiratory/Chest: lungs clear, no respiratory distress Cardiovascular: regular rate, rhythm, no gallop, no murmur Abdomen: normal bowel sounds, non tender, soft, + pertinent finding (mild left upper quadrant tenderness, no reboud or guarding) Extremities: non-tender, no pedal edema Neurologic/Psychiatric: alert, normal mood/affect, oriented x 3 Skin: normal color, warm/dry, no rash Lymphatic: no adenopathy Laboratory Results Last 24 Hours Test 06/25/17 22:00 06/25/17 22:15 06/25/17 22:18 06/25/17 22:21 Urine Color YELLOW Urine Appearance CLEAR Urine pH 5.0 Urine Specific [place] 1.021 Urine Protein NEG Urine Glucose (UA) NEG Urine Ketones NEG Urine Occult Blood NEG Urine Nitrite NEG Urine Bilirubin NEG Urine Urobilinogen NEG Urine Leukocyte Esterase TRACE Urine WBC (Auto) 1-5 /hpf Urine RBC (Auto) 0-4 /hpf Urine Hyaline Casts (Auto) 1-5 /lpf Urine Epithelial Cells (Auto) >30 /lpf Urine Bacteria (Auto) NEG White Blood Count 23.24 K/uL Red Blood Count 4.81 M/uL Hemoglobin 14.8 g/dL Hematocrit 42.4 % Mean Corpuscular Volume 88.1 fL Mean Corpuscular Hemoglobin 30.8 pg Mean Corpuscular Hemoglobin Concent 34.9 g/dl Platelet Count 327 K/uL Mean Platelet Volume 10.8 fL Neutrophils (%) (Auto) 72.1 % Lymphocytes (%) (Auto) 18.5 % Monocytes (%) (Auto) 7.3 % Eosinophils (%) (Auto) 1.3 % Basophils (%) (Auto) 0.3 % Neutrophils # (Auto) 16.75 K/uL Lymphocytes # (Auto) 4.30 K/uL Monocytes # (Auto) 1.70 K/uL Eosinophils # (Auto) 0.31 K/uL Basophils # (Auto) 0.06 K/uL RDW Standard Deviation 41.9 fL RDW Coefficient of Variation 13.0 % Immature Granulocyte % (Auto) 0.5 % Immature Granulocyte # (Auto) 0.12 K/uL Sodium Level 137 mmol/L Potassium Level 4.0 mmol/L Chloride Level 106 mmol/L Carbon Dioxide Level 23 mmol/L Anion Gap 8.0 mmol/L Blood Urea Nitrogen 13 mg/dl Creatinine 0.87 mg/dl Est Creatinine Clear Calc Drug Dose 66.2 ml/min Estimated GFR () 84.5 Estimated GFR (Non- 72.9 BUN/Creatinine Ratio 14.6 Random Glucose 176 mg/dl Calcium Level 9.1 mg/dl Total Bilirubin 0.3 mg/dl Direct Bilirubin 0.1 mg/dl Aspartate Amino Transf (AST/SGOT) 15 U/L Alanine Aminotransferase (ALT/SGPT) 28 U/L Alkaline Phosphatase 109 U/L Troponin I < 0.015 ng/ml Total Protein 7.6 gm/dl Albumin 4.0 gm/dl Triglycerides Level 245 mg/dl Lipase 779 U/L Bedside Troponin I < 0.030 ng/ml Bedside Lactic Acid Venous 2.25 mmol/L Test 06/25/17 22:24 06/26/17 02:37 06/26/17 05:53 06/26/17 07:30 Bedside Hemoglobin 14.6 g/dl Bedside Hematocrit 43 % Bedside Sodium 141 mEq/L Bedside Potassium 4.1 mEq/L Bedside Chloride 105 mEq/L Bedside Total CO2 21 mEq/l Anion Gap 20.0 mmol/L 6.0 mmol/L Bedside Blood Urea Nitrogen 13 mg/dl Bedside Creatinine 0.7 mg/dl Bedside Glucose (other) 184 mg/dl Bedside Ionized Calcium (Ana Cristina) 1.13 mmol/l Bedside Glucose 118 mg/dl 122 mg/dl Prothrombin Time 10.4 SECONDS Prothromb Time International Ratio 1.0 Sodium Level 139 mmol/L Potassium Level 4.0 mmol/L Chloride Level 110 mmol/L Carbon Dioxide Level 24 mmol/L Blood Urea Nitrogen 9 mg/dl Creatinine 0.70 mg/dl Est Creatinine Clear Calc Drug Dose 82.7 ml/min Estimated GFR () 109.9 Estimated GFR (Non- 94.8 BUN/Creatinine Ratio 12.5 Random Glucose 113 mg/dl Lactic Acid Level 1.1 mmol/L Calcium Level 8.3 mg/dl Total Bilirubin 0.4 mg/dl Direct Bilirubin < 0.1 mg/dl Aspartate Amino Transf (AST/SGOT) 11 U/L Alanine Aminotransferase (ALT/SGPT) 23 U/L Alkaline Phosphatase 92 U/L Total Protein 6.1 gm/dl Albumin 3.2 gm/dl Globulin 2.9 gm/dl Albumin/Globulin Ratio 1.1 Lipase 409 U/L Test 06/26/17 07:32 06/26/17 11:34 White Blood Count 11.46 K/uL Red Blood Count 4.03 M/uL Hemoglobin 12.4 g/dL Hematocrit 35.6 % Mean Corpuscular Volume 88.3 fL Mean Corpuscular Hemoglobin 30.8 pg Mean Corpuscular Hemoglobin Concent 34.8 g/dl Platelet Count 212 K/uL Mean Platelet Volume 9.8 fL Neutrophils (%) (Auto) 51.4 % Lymphocytes (%) (Auto) 39.2 % Monocytes (%) (Auto) 7.2 % Eosinophils (%) (Auto) 1.7 % Basophils (%) (Auto) 0.3 % Neutrophils # (Auto) 5.88 K/uL Lymphocytes # (Auto) 4.49 K/uL Monocytes # (Auto) 0.83 K/uL Eosinophils # (Auto) 0.20 K/uL Basophils # (Auto) 0.04 K/uL RDW Standard Deviation 42.5 fL RDW Coefficient of Variation 13.1 % Immature Granulocyte % (Auto) 0.2 % Immature Granulocyte # (Auto) 0.02 K/uL Bedside Glucose 78 mg/dl Assessment and Plan 57 year old female admitted with acute LUQ pain on initial diagnosis of acute pancreatitis: Acute Pancreatitis - Unlikely diagnosis: patient does not report epigastric pain, and CT is normal - Lipase elevated but per [place] criteria, is not > 3 x ULN - Would advance diet quickly given good clinical appearance - Start clears today; advance to low fat at dinner if tolerated - D/C IVF; will re-start if not tolerating diet - D/C Dilaudid; try Oxycodone PRN for Pain - Reviewed alternative differentials - Splenic, Diverticulitis, Colitis: CT noted as unremarkable - No flank pain so unlikely to pyelonephritis - States some recent heavy lifting so possible muscular strain Hypothyroidism - Continue Synthroid Diabetes Mellitus type 2 - Continue SSI and Lantus Depression/Anxiety - Continue Wellbutrin, Quetiapine, and Doxepine HTN - Continue Prazosin GERD - Continue Ranitidine - Would consider escalating therapy or adding PPI with gastritis in the differential DVT Prophylaxis - SCD Knee, KERRI Hose - Lovenox 40 mg s.c. daily Code Status - Level I Full Code Disposition - Med/Surg - OT and PT evaluations Resident Physician Supervision Note: I was present with Dr. Longo during the history and exam. I discussed the case with the resident and agree with the findings and plan as documented in the note. Any exceptions or clarifications are listed here: Upon exam, she denies abdominal pain. Upon palpation, she has slight tenderness (no rebound or guarding), right mid-abdominal area. She has no tenderness in her epigastric or upper abdominal quadrants. Despite minimally elevated lipase, exam not consistent with pancreatitis. Unsure if this represents a musculoskeletal injury (she was moving furniture the day prior to admission) - location could be consistent with a descending/sigmoid diverticulitis, although no evidence of such on CT scan. Since she is feeling better, agree with slowly advancing diet today. Documented By: Hai Fuens Continued [facility] stay due to: inadequate oral pain control Discharge planning: home
[2017-06-26] MEDS: BusPIRone 15 MG TAB PO SCH ×2 (07:42→21:02)
[2017-06-26] MEDS: RANITIDINE HCL 150 MG TAB PO SCH (07:42)
[2017-06-26] MEDS: ASPIRIN 81 MG ECTAB PO SCH (07:42)
[2017-06-26] MEDS: BuPROPion SR 150 MG TABCR PO SCH ×2 (07:42→20:59)
[2017-06-26 08:14] LABS: BASO % 0.3 %; BASO ABS # 0.04 K/uL (0-0.2); EOS % 1.7 %; HEMATOCRIT 35.6 % (37-47); HEMOGLOBIN 12.4 g/dL (12.0-16.0); IG# 0.02 K/uL (0.00-0.02); LYMPH % 39.2 %; LYMPH ABS # 4.49 K/uL (1.2-3.4); MEAN CELL VOLUME 88.3 fL (80-100); MEAN CORPUSCULAR HEMOGLOBIN 30.8 pg (25-34); MEAN CORPUSCULAR HGB CONC 34.8 g/dl (32-36); MEAN PLATELET VOLUME 9.8 fL (7.4-10.4); MONO % 7.2 %; MONO ABS # 0.83 K/uL (0.11-0.59); NEUT % 51.4 %; NEUT ABS # 5.88 K/uL (1.4-6.5); PLATELET COUNT 212 K/uL (130-400); RED CELL DISTRIBUTION WIDTH CV 13.1 % (11.5-14.5); RED CELL DISTRIBUTION WIDTH SD 42.5 fL (36.4-46.3); WHITE BLOOD COUNT 11.46 K/uL (4.8-10.8)
[2017-06-26 08:15] LABS: ALBUMIN 3.2 gm/dl (3.4-5.0); ALT/SGPT 23 U/L (12-78); BLOOD UREA NITROGEN 9 mg/dl (7-18); CALCIUM 8.3 mg/dl (8.5-10.1); CARBON DIOXIDE 24 mmol/L (21-32); GLUCOSE 113 mg/dl (70-99); LIPASE 409 U/L (73-393); SODIUM 139 mmol/L (136-145)
[2017-06-26 08:21] LABS: ALKALINE PHOSPHATASE 92 U/L (45-117); AST/SGOT 11 U/L (15-37); TOTAL PROTEIN 6.1 gm/dl (6.4-8.2)
[2017-06-26] MEDS: ENOXAPARIN 40 MG/0.4 ML SYR SQ SCH (09:14)
[2017-06-27 00:43] VITALS: O2SAT 95
[2017-06-27 03:54] VITALS: BP 145/72; PULSE 78; TEMP 36.6; O2SAT 96
[2017-06-27] MEDS ORDERED: OXYCODONE HCL IR 5 MG TAB (IMMEDIATE RELEASE) PO PRN (07:00)
--- NOTE | 2017-06-27 07:00 | Family Medicine Progress Note ---
Progress Note Date of Service Jun 27, 2017.
[2017-06-27] MEDS: LEVOTHYROXINE 75 MCG TAB PO SCH (07:01)
[2017-06-27 07:04] VITALS: BP 138/85; PULSE 86; TEMP 37.1; O2SAT 93
[2017-06-27] MEDS: ENOXAPARIN 40 MG/0.4 ML SYR SQ SCH (07:22)
[2017-06-27] MEDS: RANITIDINE HCL 150 MG TAB PO SCH (07:23)
[2017-06-27] MEDS: ASPIRIN 81 MG ECTAB PO SCH (07:23)
[2017-06-27] MEDS: BuPROPion SR 150 MG TABCR PO SCH (07:23)
[2017-06-27] MEDS: BusPIRone 15 MG TAB PO SCH (07:23)
[2017-06-27 07:28] LABS: HEMATOCRIT 38.9 % (37-47); HEMOGLOBIN 13.5 g/dL (12.0-16.0); MEAN CELL VOLUME 87.4 fL (80-100); MEAN CORPUSCULAR HEMOGLOBIN 30.3 pg (25-34); MEAN CORPUSCULAR HGB CONC 34.7 g/dl (32-36); MEAN PLATELET VOLUME 10.8 fL (7.4-10.4); PLATELET COUNT 214 K/uL (130-400); RED CELL DISTRIBUTION WIDTH CV 12.7 % (11.5-14.5); RED CELL DISTRIBUTION WIDTH SD 40.9 fL (36.4-46.3); WHITE BLOOD COUNT 8.08 K/uL (4.8-10.8)
[2017-06-27] MEDS: INSULIN GLARGINE SOLOSTAR 100 UNITS/ML 3 ML PEN SC SCH (07:54)
[2017-06-27] MEDS: INSULIN ASPART 100 UNITS/ML 3 ML PEN SC SCH (07:54)
[2017-06-27 07:58] LABS: ALBUMIN 3.3 gm/dl (3.4-5.0); ALT/SGPT 31 U/L (12-78); AST/SGOT 18 U/L (15-37); BLOOD UREA NITROGEN 9 mg/dl (7-18); CALCIUM 8.7 mg/dl (8.5-10.1); CARBON DIOXIDE 25 mmol/L (21-32); CREATININE 0.76 mg/dl (0.60-1.20); GLUCOSE 125 mg/dl (70-99); LIPASE 196 U/L (73-393); POTASSIUM 4.1 mmol/L (3.5-5.1); SODIUM 140 mmol/L (136-145)
[2017-06-27 08:01] LABS: ALKALINE PHOSPHATASE 100 U/L (45-117); TOTAL PROTEIN 6.6 gm/dl (6.4-8.2)
[2017-06-27] MEDS ORDERED: PRLSR20 PO ×2 (10:34→10:44)
--- NOTE | 2017-06-27 10:48 | Discharge Instructions ---
Discharge Instructions Date of Service Jun 27, 2017. Admission Reason for Admission: Pancreatitis Discharge Discharge Diagnosis / Problem: Abdominal pain, rule-out pancreatitis Discharge Goals Goal(s): Decrease discomfort Activity Recommendations Activity Limitations: resume your previous activity Lifting Limitations: none Exercise/Sports Limitations: none . Instructions / Follow-Up Instructions / Follow-Up You came to the hospital for abdominal pain that was concerning for pancreatitis. Your CT scan was normal and the blood test was not high enough to consider positive for pancreatitis. The location of your abdominal pain was also not typical. Other causes include your spleen, color or kidneys but these were normal on lab testing and imaging. You likely had a bad episode of gastritis (irritation of the stomach). We will discharge you with an additional anti-acid medication. Please take this and follow-up with your PCP to decide if it needs to be continued. You should avoid non-steroid anti-inflammatories (Motrin, Ibuprofen etc.) When you go home, please take a low fat diet. Also eat low residue foods (BRAT : Bananas, rice, apple sauce toast). Do this for 3-5 days and gradually go back to your regular diet as tolerated. If your symptoms fail to improve, acutely worsen, please seek medical attention immediately by either calling your primary care provider or going to your nearest emergency department. Otherwise, please see your primary care provider within 1 week to ensure that your symptoms continue to improve. It was a pleasure to be involved in your care and we wish you all the best. Current Hospital Diet Patient's current hospital diet: Diabetes Type 2 Diet, Low Fat Diet Discharge Diet Recommended Diet: Low Fat Diet Pending Studies Studies pending at discharge: no Laboratory Results Lipid Panel Test 06/25/17 22:15 Range/Units Triglycerides Level 245 H 0-150 mg/dl Medical Emergencies . Who to Call and When: Medical Emergencies: If at any time you feel your situation is an emergency, please call 911 immediately. . Non-Emergent Contact Non-Emergency issues call your: Primary Care Provider Call Non-Emergent contact if: you have a fever, your pain is unusual for you . . "Provider Documentation" section prepared by Daniel Longo. .
[2017-06-27 10:50] VITALS: BP 138/85; PULSE 86; TEMP 37.1; O2SAT 93
--- NOTE | 2017-06-27 11:05 | Discharge Summary ---
Discharge Summary Date of Service Jun 27, 2017. Discharge Summary Admission Date: Jun 26, 2017 at 00:03 Discharge Date: Jun 27, 2017 Discharge Disposition: Home Principal Diagnosis: Abdominal pain, gastritis, mild pancreatitis Problems/Secondary Diagnoses: type 2 diabetes mellitus Procedures: CT SCAN OF THE ABDOMEN AND PELVIS WITH IV CONTRAST CLINICAL HISTORY: Left upper quadrant abdominal pain. COMPARISON STUDY: Abdominal CT dated 05/18/2017. Chest CT dated 10/16/2011. TECHNIQUE: Following the IV administration of 93 cc of Optiray 320, CT scan of the abdomen and pelvis is performed from the lung bases to the proximal femora. Images are reviewed in the axial, sagittal, and coronal planes. IV contrast was administered without complication. A dose lowering technique was utilized adhering to the principles of ALARA. CT DOSE: 599.68 mGy.cm FINDINGS: Lung bases: The heart is normal in size and without pericardial effusion. A 4 mm left lower lobe pulmonary nodule seen image #30 is unchanged dating back to 2011 and of doubtful significance. The lung bases are otherwise clear. Liver: The contrast-enhanced liver is enlarged, measuring 19.6 cm in length. The liver demonstrates diffusely diminished attenuation consistent with hepatic steatosis. There is no intrahepatic biliary ductal dilatation. The hepatic veins and portal veins are patent. Gallbladder: Focal adenomyomatosis is again suggested in the gallbladder fundus. The gallbladder is otherwise normal in appearance. Spleen: Normal in size and attenuation. Pancreas: Unremarkable. Adrenal glands: Unremarkable. Kidneys: The contrast enhanced kidneys are normal in size and without hydronephrosis. The kidneys enhance symmetrically. Abdominal vasculature: The abdominal aorta is normal in course and caliber noting scattered foci of atherosclerotic calcification. Bowel: The small bowel and colon are normal in course and caliber. The appendix is well-visualized and normal. Peritoneum: There is no intraperitoneal free air or abdominal ascites. Lymphadenopathy: None. Pelvic viscera: The bladder is normal as visualized. The uterus is surgically absent. No adnexal lesion is seen. Skeletal structures: The skeletal structures are osteopenic. No lytic or blastic lesions are seen. IMPRESSION: 1. There are no acute infectious or inflammatory findings in the abdomen or pelvis. 2. Hepatomegaly and hepatic steatosis. Electronically signed by: Daryn Barboza M.D. 06/25/2017 11:00 PM Dictated Date/Time: 06/25/2017 10:54 PM The status of this report is Signed. Draft = Not yet reviewed or approved by Radiologist. Signed = Reviewed and approved by Radiologist. <AttendingPhy></AttendingPhy> <FamilyPhy>Geneva Loving M.D.</FamilyPhy > <PrimaryPhy>Geneva Loving M.D.</PrimaryPhy> <UnitNumber>[id number]</ UnitNumber> <VisitNumber>[id number]</VisitNumber> <PatientName>VENKATESH DELCID Champ </PatientName> <DateOfBirth>1960</DateOfBirth> <Location>[facility]</Location> <ServiceDate>06/25/17</ServiceDate> <MNE>ESINDI</MNE> <OrderingPhy>Mery Hodge Medication Reconciliation New Medications: Omeprazole (Prilosec) 20 Mg Capcr 1 CAP PO BID for 30 Days, #60 CAP Continued Medications: Aspirin (Aspirin Ec) 81 Mg Tab 81 MG PO DAILY Atorvastatin (Lipitor) 10 Mg Tab 10 MG PO DAILY Bupropion HCl (Bupropion HCl Sr) 150 Mg Tabcr 150 MG PO BID Buspirone HCl (Buspirone HCl) 15 Mg Tab 15 MG PO BID Doxepin Hcl (Sinequan) 50 Mg Cap 50 MG PO HS Dulaglutide (Trulicity) 0.75 Mg/0.5 Ml Inj 0.75 MG SC WK ADMINISTER EVERY WEDNESDAY Gabapentin (Gabapentin) 300 Mg Cap 300 MG PO HS Glimepiride (Glimepiride) 4 Mg Tab 4 MG PO QAM Levothyroxine Sodium (Levothyroxine Sodium) 75 Mcg Tab 75 MCG PO DAILY Metformin Hcl (Glucophage) 1,000 Mg Tab 1000 MG PO BID, TAB Omeprazole (Prilosec) 20 Mg Capcr 20 MG PO BID for 30 Days, #60 CAP Prazosin HCl (Prazosin HCl) 1 Mg Cap 2 MG PO HS Quetiapine Fumarate (Quetiapine Fumarate) 400 Mg Tab 400 MG PO HS Ranitidine Hcl (Zantac) 300 Mg Tab 300 MG PO QAM Discharge Exam A 10 point review of systems was negative on day of discharge unless stated in the hospital course Physical Exam: General Appearance: WD/WN, no apparent distress Eyes: normal inspection, EOMI ENT: hearing grossly normal, pharynx normal Neck: supple, no adenopathy, no JVD Respiratory/Chest: lungs clear, no respiratory distress Cardiovascular: regular rate, rhythm, no gallop, no murmur Abdomen / GI: normal bowel sounds, non tender, soft Extremities: no calf tenderness, no pedal edema Neurologic/Psychiatric: alert, normal mood/affect, oriented x 3 Skin: normal color, warm/dry, no rash Lymphatic: no adenopathy Hospital Course 57 year old female admitted with acute LUQ pain on initial diagnosis of acute pancreatitis: Acute Pancreatitis - Suspected initially based on location of pain, and mildly elevated lipase - Our impression was that this was unlikely the diagnosis: patient does not report epigastric pain, and CT is normal and Lipase not at minumum th[place] of > 3 x ULN - Patient treated with IVF x 24 hours; rapid cessation of symptoms - Clear liquids and low fat diet introduced early; patient tolerated without any pain - Lipase rapidly trended downwards 700 --> 400 --> 200 over 48 hours - Reviewed alternative differentials - Splenic, Diverticulitis, Colitis: CT noted as unremarkable - No flank pain and urine clean so unlikely to pyelonephritis - States some recent heavy lifting so possible muscular strain - Gallbladder etiologies have been work-up previously and negative - Our suspicion was gastritis and we decided to treat empirically with Omeprazole BID on addition to her daily Ranitidine Hypothyroidism - She continued Synthroid during admission; no changes at discharge Diabetes Mellitus type 2 - Given sliding-scale insulin and Lantus; converted to her home meds at discharge; no change at discharge - We have opted to continue her on Trulicity given low suspicion for acute pancreatitis; PCP can discuss whether alternative regimen would be needed for the patient. Depression/Anxiety - Continued Wellbutrin, Quetiapine, and Doxepine during admission; no changes at discharge HTN - Continued Prazosin; no changes at discharge GERD - Continued Ranitidine - We added 20 mg Omeprazole BID at discharged The patient had a good recovery and was discharged in stable condition. There are no studies or labs pending at discharge. She has been advised to see her PCP 1 week at discharge to ensure that she continues to improve. Resident Physician Supervision Note: I was present with Dr. Longo during the history and exam. I discussed the case with the resident and agree with the findings and plan as documented in the note. Any exceptions or clarifications are listed here: Upon exam, the patient had no complaints. She had no difficulty tolerating a full diet for breakfast and was eager for discharge. Agree with recommendations as described above regarding diet. Documented By: Hai Funes Total Time Spent: Less than 30 minutes This includes examination of the patient, discharge planning, medication reconciliation, and communication with other providers. Discharge Instructions Please refer to the electronic Patient Visit Report (Discharge Instructions) for additional information. Additional Copies To Geneva Loving M.D.
== END 2017-06-27 11:30 | disposition home or self-care (01) | DRG 391 ==
LOC: C.EDB 21:47 → C.MED 06-26 00:03 → ENRESERV 06-26 00:55
PROVIDERS: ADMIT Internal Medicine; ATTEND Family Medicine
DX: K29.70 Gastritis, unspecified, without bleeding (principal); K85.90 Acute pancreatitis without necrosis or infection, unspecified; E11.9 Type 2 diabetes mellitus without complications; E78.5 Hyperlipidemia, unspecified; E03.9 Hypothyroidism, unspecified; F42.9 Obsessive-compulsive disorder, unspecified; F32.9 Major depressive disorder, single episode, unspecified; F41.9 Anxiety disorder, unspecified; Z83.3 Family history of diabetes mellitus; Z82.49 Family history of ischemic heart disease and other diseases of the circulatory system; Z79.82 Long term (current) use of aspirin; Z88.1 Allergy status to other antibiotic agents

== ENCOUNTER → 2017-07-06 | Outpatient (CLI) | payer OTHER ==
[~2017-07-06] MED LIST changes: -ONDA4TAB10 SL; -OXYC-57 PO; +PRLSR20 PO
[2017-07-06 16:51] LABS: BASO % 0.6 %; BASO ABS # 0.07 K/uL (0-0.2); EOS % 1.5 %; EOS ABS # 0.19 K/uL (0-0.5); HEMATOCRIT 40.8 % (37-47); HEMOGLOBIN 14.1 g/dL (12.0-16.0); IG# 0.03 K/uL (0.00-0.02); LYMPH % 39.6 %; LYMPH ABS # 4.85 K/uL (1.2-3.4); MEAN CELL VOLUME 88.7 fL (80-100); MEAN CORPUSCULAR HEMOGLOBIN 30.7 pg (25-34); MEAN CORPUSCULAR HGB CONC 34.6 g/dl (32-36); MONO % 7.5 %; MONO ABS # 0.92 K/uL (0.11-0.59); NEUT % 50.6 %; PLATELET COUNT 286 K/uL (130-400); RED CELL DISTRIBUTION WIDTH CV 12.8 % (11.5-14.5); RED CELL DISTRIBUTION WIDTH SD 41.2 fL (36.4-46.3); WHITE BLOOD COUNT 12.26 K/uL (4.8-10.8)
[2017-07-07 05:56] LABS: HEMOGLOBIN A1C 7.2 % (4.5-5.6)
== END | disposition home or self-care (01) ==
LOC: C.LABBFT 13:29
PROVIDERS: ATTEND Internal Medicine Endocrinology, Diabetes & Metabolism
DX: R94.6 Abnormal results of thyroid function studies (principal); E11.65 Type 2 diabetes mellitus with hyperglycemia; D72.829 Elevated white blood cell count, unspecified